=== PATIENT | male | born 2000 | race Caucasian/White ===

== ENCOUNTER 2019-10-29 20:10 | Emergency (ER) | payer OTHER, SELFPAY ==
--- NOTE | ~2019-10-29 | CT_ITS ---
EXAMINATION: CT brain wo con DATE: 10/29/2019 20:43 INDICATION: 2-3 days of worsening diffuse headache TECHNIQUE: Computed tomography (CT) of the head was performed without intravenous contrast. Sagittal and coronal reconstructions were performed. The mA was adjusted according to patient size. Iterative reconstruction technique was employed. The dose-length product was 605.33 mGy-cm. COMPARISON: head CT dated 03/02/2017 FINDINGS: No acute intracranial hemorrhage, acute infarction or abnormal extra axial fluid collection. Ventricl es are normal and symmetric. No mass/mass effect. Prominent mucosal thickening throughout the paranas al sinuses with complete opacification of the right sphenoid, all the visualized right ethmoid and vi sualized portion of the right maxillary sinus and complete opacification of the left sphenoid sinus. The orbits and mastoid air cells are normal. IMPRESSION: 1. Normal brain. 2. Extensive sinus disease. Reviewed, dictated and finalized at location A. IAL INSPECTOR
--- NOTE | 2019-10-29 20:14 | ED.HA ---
HPI - Headache General Chief Complaint: Headache Stated Complaint: headache Time Seen by Provider: 10/29/19 20:14 Source: patient Mode of arrival: ambulatory Limitations: no limitations History of Present Illness HPI Narrative: 19-year-old male presents with worsening headache today. He was seen last evening for the same and given IV medications. He was pain free when he left. Today he got his Imitrex and had onset of no other headache took an Imitrex and was relieved. He had a 2nd headache today taken Imitrex and was relieved had a 3rd headache today and the Imitrex did not help. He comes in today because of that headache. He complains of photophobia and phonophobia. Yesterday had blurry vision with this headache but today denies blurry vision. MD elicited complaint: migraine Onset (ago): day(s) (1) Onset description: gradually Location: left Severity: severe Quality & Timing: throbbing, dull, progressively worsening and similar to previous headaches Exacerbating factors: light and noise Relieving factors: prescription medication Context: occurred at rest Associated symptoms: nausea Treatments prior to arrival: migraine medication Related Data Allergies Allergy/AdvReac Type Severity Reaction Status Date / Time No Known Allergies Allergy Unverified 02/04/18 08:04 Review of Systems Review of Systems: All systems reviewed & are unremarkable except as noted in HPI and below PMFSH Past Medical History Medical History Adrenal insufficiency Diabetes mellitus type 1 Hypothyroidism Family History Family History Father Hypertension Family history of elevated blood lipids Family history of type 2 diabetes mellitus Mother Family history of hypothyroidism Family history of type 2 diabetes mellitus Other Asthma Cerebrovascular accident Diabetes mellitus Family history of Alzheimer's disease Family history of anemia Family history of arthritis Family history of atrial fibrillation Family history of cardiovascular disease Family history of chronic obstructive pulmonary disease Family history of congestive heart failure Family history of obesity Family history of thyroid disease Social History Social History Smoking status: Heavy tobacco smoker Alcohol intake: never Exam Const: General: healthy appearing, no acute distress and alert Nutritional Appearance: well nourished Orientation/consciousness: patient oriented x3 HENMT: Head: normal to inspection Ears: external ears normal and TM's normal bilaterally Face and sinus: sinus tenderness frontal (Left) and maxillary (Left) Mouth: Yes Normal oral and palatal mucosa present Eyes: Conjunctivae: conjunctivae normal Pupils: Equal, round and reactive pupils present EOM: EOMs intact bilaterally Direct Ophthalmoscopy: photophobia Neck: Neck: normal visual inspection Resp: Effort & Inspection: normal respiratory effort Auscultation: clear to auscultation bilaterally Cardio: Rate: regular rate Rhythm: regular rhythm GI: GI Palp: Yes Soft to palpation and No Tenderness to palpation present (GI) Back/Spine/Pelvis: Cervical Spine: cervical ROM normal Thoracic/Lumbar Spine: thoraco-lumbar ROM normal Neuro: General: patient oriented x3, moves all extremities, no meningeal signs and no focal motor deficits Speech: normal speech Gait exam (Neuro): Normal gait present Extrem: General: normal to inspection and no clubbing, cyanosis or edema Psych: Appearance: well kempt Mental Status: mental status grossly normal Affect: normal affect Attitude: cooperative Thought content: Yes Normal thought content present Discharge Plan Discharge Prescriptions: No Action sumatriptan succinate [Imitrex] 25 mg tablet See Rx Instructions .ROUTE .COMPLEX PRN (Reason: MIgraine ) Qty: 7 RF: 0
[2019-10-29 20:20] VITALS: BP 162/92; PULSE 101; RESP 14; TEMP 37.2; O2SAT 99
[2019-10-29] MEDS: ONDANSETRON INJ 4 MG/2 ML VIAL 8 MG IV PUSH (21:04)
[2019-10-29] MEDS: KETOROLAC 30 MG/ML VIAL (*BKC) IV PUSH (21:04)
[2019-10-29] MEDS: AMOXICILLIN/CLAVULANATE K 875-125 MG TAB 1 TABLET (21:09)
[2019-10-29 21:25] VITALS: BP 129/76
== END 2019-10-29 21:25 | disposition home or self-care (01) ==
PROVIDERS: Emergency Provider Emergency Medicine; PCP Family Medicine
DX: G43.909 Migraine, unspecified, not intractable, without status migrainosus (principal)
CPT/HCPCS: 70450; 96374; 96375; 99282; 99284; A9270; J1885; J2405

== ENCOUNTER 2020-10-07 13:58 | Emergency (ER) | payer OTHER, SELFPAY ==
[2020-10-07] VITALS (24 sets, daily range): BP systolic 105–124; BP diastolic 52–78; PULSE 91–132; RESP 11–29; TEMP 36.9; O2SAT 98–100
--- NOTE | ~2020-10-07 | XR_ITS ---
EXAMINATION: XR abdomen obstructive series DATE: 10/07/2020 16:53 INDICATION: Abdomen pain TECHNIQUE: Supine and upright views of the abdomen. FINDINGS: 02/10/2012 The visualized lung parenchyma is normal.. There is a nonobstructive bowel gas pattern. There is larg e amount of retained fecal material in the colon. Gas and stool are seen throughout the colon to the level of the rectum. There is no free air. IMPRESSION: 1. No acute abdominal abnormality. Fecal impaction of the colon. Reviewed, dictated and finalized at location A. MATIC CLIPPER
--- NOTE | ~2020-10-07 | XR_ITS ---
EXAMINATION: XR chest 1V portable 10/07/2020 14:45 INDICATION: Chest pain PROCEDURE: AP portable chest COMPARISON: 02/10/2012 FINDINGS: The lungs are clear. The cardiomediastinal silhouette is within normal limits. There are no pleural effusions. There is no pneumothorax suspected. IMPRESSION: 1: NO ACUTE CARDIOPULMONARY DISEASE. Reviewed, dictated and finalized at location A. STANT BASEBALL COACH
--- NOTE | 2020-10-07 14:08 | ECG_ITS ---
Measurements Intervals [place] Rate: 112 P: 78 MO: 128 QRS: 83 QRSD: 97 T: 75 QT: 333 QTc: 456 Interpretive Statements SINUS TACHYCARDIA ABNORMAL ECG Electronically Signed On 10-08-2020 14:20:11 AGRONOMY LOCATION MANAGER by Paco Schultz D.O.
[2020-10-07] MEDS: ONDANSETRON INJ 4 MG/2 ML VIAL IV PUSH (14:11)
[2020-10-07] MEDS: HYOSCY (14:17)
[2020-10-07] MEDS: ATROPINE (14:17)
[2020-10-07] MEDS: LIDOCAINE HCL 2% VISC SOLN 15 ML UDC (14:17)
[2020-10-07] MEDS: SCOP (14:17)
[2020-10-07] MEDS: MAG HYDROX/AL HYDROX/SIMETH 30 ML UDC (14:17)
[2020-10-07] MEDS: PHENOBARB (14:17)
[2020-10-07 14:30] LABS: Basophils Absolute Auto 0.07 K/mm3 (0.00-0.10); Eosinophils Absolute Auto 0.46 K/mm3 (0.02-0.50); Eosinophils Percent Auto 6.4 % (1.0-6.0); Immature Granulocyte Absolute 0.03 K/mm3 (0.00-0.00); Immature Granulocyte Percent A 0.4 % (0.0-0.0); Lymphocytes Absolute Auto 2.79 K/mm3 (1.10-4.50); Lymphocytes Percent Auto 38.8 % (18.0-42.0); Mean Corpuscular HGB Conc 32.6 g/dL (32.0-36.0); Mean Corpuscular Hemoglobin 25.5 pg (27.0-31.0); Mean Corpuscular Volume 78.2 fL (78.0-102.0); Mean Platelet Volume 11.6 fl (8.7-11.0); Monocytes Absolute Auto 0.46 K/mm3 (0.10-0.90); Monocytes Percent Auto 6.4 % (2.0-11.0); Neutrophils Absolute Auto 3.4 K/mm3 (1.7-7.2); Platelet Count Result 225 K/mm3 (150-420); Red Cell Distribution Width 12.9 % (11.6-14.4); White Blood Count 7.2 K/mm3 (4.8-10.8)
[2020-10-07 14:44] LABS: D Dimer 0.19 mg/L (0.19-0.50)
[2020-10-07 14:48] LABS: Alanine Aminotransferase 29 U/L (16-63); Albumin Level 4.4 g/dL (3.4-5.0); Alkaline Phosphatase 158 U/L (46-116); Anion Gap 23 mmol/L (8-16); Aspartate Amino Transferase 19 U/L (15-37); Blood Urea Nitrogen 24 mg/dL (7-18); Calcium 9.7 mg/dL (8.5-10.1); Carbon Dioxide 15 mmol/L (21-32); Chloride 93 mmol/L (98-108); Estimated Glomerular Filt Rate > 60; Potassium 4.3 mmol/L (3.5-5.1); Sodium 131 mmol/L (136-145); Total Protein 7.4 g/dL (6.4-8.2); Troponin I 20.8 ng/L (0.00-60.4)
[2020-10-07 14:49] LABS: Glucose 545 mg/dL (70-99); Osmolality Calculated 301 mOsm/kg (285-295)
[2020-10-07 15:02] LABS: Amylase 26 U/L (25-115); Lipase 65 U/L (73-393)
[2020-10-07 15:27] LABS: Add Urine Microscopic? YES; Appearance Urine Clear (Clear); Bilirubin Urine Negative (Negative); Blood Urine Negative (Negative); Color Urine Yellow (Yellow); Glucose Urine UA 2+ (Negative); Ketones Urine 3+ (Negative); Leukocyte Esterase Ur Negative (Negative); Nitrate Urine Negative (Negative); Protein Urine Negative (Negative); Urobilinogen Urine 0.2 mg/dL (0.2-1.0); pH Urine 5.5 (5.0-8.0)
[2020-10-07 15:32] LABS: Bacteria Urine None seen /hpf; RBC Urine 0-2 /hpf (0-2); Squamous Epithelial Cell Urine None seen /hpf (Few); WBC Urine 0-3 /hpf (0-3)
[2020-10-07 15:37] LABS: Amphetamine Screen Urine Negative (Negative); Barbiturate Screen Urine Negative (Negative); Benzodiazepines Screen Urine Negative (Negative); Cannabinoid Screen Urine Positive (Negative); Cocaine Screen Urine Negative (Negative); Methadone Screen Urine Negative (Negative); Opiate Screen Urine Negative (Negative); Phencyclidine Screen Urine Negative (Negative)
[2020-10-07] MEDS: METOCLOPRAMIDE HCL INJ 10 MG/2 ML VIAL IV PUSH (15:40)
[2020-10-07 15:43] LABS: SARS-CoV-2 Ag Negative (Negative)
[2020-10-07 15:53] LABS: Acetone Moderate (Negative)
[2020-10-07] MEDS: INSULIN HUMAN REGULAR (*BKC) 100 UNITS/ML 10 UNITS IV PUSH (15:57)
[2020-10-07 17:40] LABS: Glucose Point of Care 439 (65-105)
[2020-10-07 17:40] LABS: Glucose Point of Care 424 (65-105)
[2020-10-07 17:40] LABS: Glucose Point of Care 318 (65-105)
--- NOTE | 2020-10-10 03:06 | ED.CHESTPAIN ---
HPI - Chest Pain General Chief Complaint: Chest Pain Stated Complaint: vomitting Time Seen by Provider: 10/07/20 15:15 Source: patient Mode of arrival: ambulatory Limitations: no limitations History of Present Illness HPI narrative: Patient states he has had midsternal chest pain and epigastric pain that has been severe and ongoing for the past several hours. This is a sharp pain and has not been relieved by ibuprofen taken at home. This is not known to be related to any known injury or known cause. Onset: during rest Pain location: substernal and epigastric Pain radiation: none Severity: severe Quality: sharp Relieving factors: nothing Exacerbating factors: nothing Context: recent illness Associated symptoms: nausea Risk Factors Coronary artery disease risk factors: none Related Data Home Medications Medication Instructions Recorded Confirmed Basaglar KwikPen U-100 Insulin 30 unit SUBCUT HS 10/07/20 10/07/20 Allergies Allergy/AdvReac Type Severity Reaction Status Date / Time No Known Allergies Allergy Unverified 02/04/18 08:04 Review of Systems Constitutional: Constitutional: Reports no additional constitutional complaints Eyes: Eyes: Reports no additional eye complaints ENT: Reports system reviewed and no additional complaints, except as documented Cardiovascular: Cardiovascular: Reports no additional cardiovascular complaints Respiratory: Respiratory: Reports no additional respiratory complaints Gastrointestinal: Gastrointestinal: Reports no additional gastrointestinal complaints Genitourinary: Genitourinary: Reports no additional male genitourinary complaints Musculoskeletal: Musculoskeletal: Reports no additional musculoskeletal complaints Integumentary/Breasts: Skin/Breast: Reports system reviewed and no additional complaints, except as docu Neurologic: Reports system reviewed and no additional complaints, except as documented Psychiatric: Psychiatric: Reports no additional psychiatric complaints Endocrine: Endocrine: Reports no additional endocrine complaints Hematologic/Lymphatic: Hematologic/Lymphatic: Reports no additional hematologic/lymphatic complaints Allergic/Immunologic: Allergic/Immunologic: Reports no additional allergic/immunologic complaints [facility] Past Medical History Medical History Adrenal insufficiency (~2002) Depression Diabetes mellitus type 1 (~1998) Historically poorly controlled. Most recent hemoglobin A1c was 13.1%. Hypothyroidism Paroxysmal supraventricular tachycardia Surgical History Surgical History History of tonsillectomy Family History Family History Father Hypertension Family history of elevated blood lipids Family history of type 2 diabetes mellitus Mother Family history of hypothyroidism Family history of type 2 diabetes mellitus Other Asthma Cerebrovascular accident Diabetes mellitus Family history of Alzheimer's disease Family history of anemia Family history of arthritis Family history of atrial fibrillation Family history of cardiovascular disease Family history of chronic obstructive pulmonary disease Family history of congestive heart failure Family history of obesity Family history of thyroid disease Social History Social History Social History: Surrogate decision maker: Jose Martin Crane, father. Code status: Full code. Smoking packs per day: 0.5 Smoking cigarettes per day: 10.0 Years smoked: 4 Smoking pack-years: 2.00 Smoking status: Current every day smoker Tobacco type: cigarettes Alcohol intake: current Alcohol use details: Drinks seldom and in moderation Substance use: current Substance use type: marijuana Last use: 1 Additional living arrangements comments: Lives with his girlfr
== END 2020-10-07 19:05 | disposition short-term general hospital (02) ==
PROVIDERS: Emergency Provider Emergency Medicine
DX: E11.10 Type 2 diabetes mellitus with ketoacidosis without coma (principal); Z79.4 Long term (current) use of insulin; R07.9 Chest pain, unspecified
CPT/HCPCS: 36415; 71045; 74019; 80053; 80307; 81001; 82010; 82150; 83690; 84484; 85025; 85380; 87426; 93005; 96374; 96375; 99285; A9270; J1815; J2405; J2765

== ENCOUNTER 2020-10-07 20:09 | Inpatient (IN) | payer OTHER, SELFPAY ==
--- NOTE | 2020-10-07 19:45 | ADMGEN ---
This patient, Eugenio Crane, was admitted to Intensive Care Unit-7. Patient/family oriented to hospital policies and general routines including ID bracelet, bed and alarms, visiting hours, pain management, procedures, bathroom and other care routines, personal items, smoking policy, room service/diet, and visiting hours. Information on how to activate the Rapid Response Team has been discussed. Patient/Family are encouraged to report perceived risks to care and to ask questions if they do not understand what they are told or what they should do.
[2020-10-07 20:00] VITALS: BP 116/67; PULSE 109; PULSE 124; RESP 25; TEMP 36.8; O2SAT 98
[2020-10-07 20:02] VITALS: BMI 17.4
--- NOTE | 2020-10-07 20:20 | PM.IMHP ---
H&P: HPI History of Present Illness Date/Time: 10/07/20 20:30 <Jenae Tejeda PA-C - Last Filed: 10/07/20 21:40> Chief Complaint: Diabetic ketoacidosis. <Jenae Tejeda PA-C - Last Filed: 10/07/20 21:40> Narrative: Eugenio Crane is a 20-year-old male with type 1 diabetes mellitus, hypothyroidism, and adrenal insufficiency who is being directly admitted to the hospitalist service from the emergency department at [facility] [place] for [place] of diabetic ketoacidosis. Historically it sounds as though his diabetes is not well controlled with most recent hemoglobin A1c of 13.1%. He is haphazard about checking his glucose and in fact it sounds as though he was not checking them at all for several months due to a broken glucometer. More recently he has replace that glucometer and admits that his random glucose is typically in the mid 200s. In any event he felt normal when he went to bed last night. Upon waking in around 09:00 hours he had nausea and burning/sharp discomfort in the low sternal/epigastric region. He had several episodes of emesis thereafter, fell back asleep, and when he woke several hours later he was feeling short of breath with a racing heart. The nausea, vomiting, and epigastric discomfort also returned. He presented to the emergency department at [facility] [place] where he was diagnosed with diabetic ketoacidosis. At the time my evaluation he feels much better after simply receiving IV fluid rehydration and antiemetics. He denies fever, chills, sweats, cold and flu symptoms, sick contacts, hematemesis, diarrhea, melena, and dysuria. No exertional chest pain or shortness of breath. He has not had a cough. No pleuritic pain. <Jenae Tejeda PA-C - Last Filed: 10/07/20 21:40> Review of Systems Review of Systems: Narrative: Twelve systems were reviewed with pertinent positives and negatives as per HPI. Frequent constipation, typically has a bowel movement every 2 days or so. He suffers from GERD and it sounds like he gets pretty frequent indigestion however he does not take any medication for such. Except as documented, all other systems were reviewed and are negative. <Jenae Tjeeda PA-C - Last Filed: 10/07/20 21:40> [facility] Past Medical History Medical History: Medical History (Updated 10/07/20 @ 21:34 by Jenae Tejeda PA-C) Adrenal insufficiency (~2002) Depression Diabetes mellitus type 1 (~1998) Historically poorly controlled. Most recent hemoglobin A1c was 13.1%. Hypothyroidism Paroxysmal supraventricular tachycardia <Jenae Tejeda PA-C - Last Filed: 10/07/20 21:40> Surgical History Surgical History: Surgical History (Updated 10/07/20 @ 21:19 by Jenae Tejeda PA-C) History of tonsillectomy <Jenae Tejeda PA-C - Last Filed: 10/07/20 21:40> Family History Family History: Family History Father Hypertension Family history of elevated blood lipids Family history of type 2 diabetes mellitus Mother Family history of hypothyroidism Family history of type 2 diabetes mellitus Other Asthma Cerebrovascular accident Diabetes mellitus Family history of Alzheimer's disease Family history of anemia Family history of arthritis Family history of atrial fibrillation Family history of cardiovascular disease Family history of chronic obstructive pulmonary disease Family history of congestive heart failure Family history of obesity Family history of thyroid disease <Jenae Tejeda PA-C - Last Filed: 10/07/20 21:40> Social History Social History: Social History (Updated 10/07/20 @ 21:22 by Jenae Tejeda PA-C) Social History: Surrogate decision maker: Jose Martin Crane, father. Code status: Full code. Smoking packs per day: 0.5 Smoking cigarettes per day: 10.0 Years smoked: 4 Smoking pack-years: 2.00 Smoki
[2020-10-07 20:46] LABS: Anion Gap 21 mmol/L (8-16); Blood Urea Nitrogen 19 mg/dL (9-20); Calcium 9.7 mg/dL (8.4-10.2); Carbon Dioxide 14 mmol/L (22-30); Chloride 100 mmol/L (98-107); Estimated CRCL calculation 97 ml/min; Estimated Glomerular Filt Rate > 60; Glucose 342 mg/dL (75-110); Phosphorus 3.5 mg/dL (2.5-4.5); Potassium 4.6 mmol/L (3.4-5.0); Sodium 135 mmol/L (137-145)
[2020-10-07 20:48] LABS: Hemoglobin A1C 13.4 % (<5.7)
[2020-10-07] MEDS: INSULIN HUMAN REGULAR (*BKC) 100 UNITS in SODIUM CHLORIDE 0.9% IV 99 ML 5.5 UNITS IV CONT (21:03)
[2020-10-07] MEDS: SODIUM CHLORIDE 0.9% IV 1,000 ML 150 ML IV CONT (21:03)
[2020-10-07 21:11] LABS: Glucose Point of Care 333 (65-105)
[2020-10-07 21:58] LABS: Glucose Point of Care 352 (65-105)
[2020-10-07 22:00] VITALS: BP 107/58; PULSE 94; RESP 17; O2SAT 99
[2020-10-07 22:47] LABS: Glucose Point of Care 248 (65-105)
[2020-10-07 23:54] VITALS: BP 116/69; PULSE 94; RESP 18; TEMP 37.1; O2SAT 100
[2020-10-07 23:58] LABS: Glucose Point of Care 177 (65-105)
[2020-10-07] MEDS: KCL 20 MEQ/D5/0.45% SOD CHL 1,000 ML 150 ML IV CONT (23:59)
[2020-10-08] VITALS (9 sets, daily range): BP systolic 93–127; BP diastolic 42–94; PULSE 64–112; RESP 14–18; TEMP 35.8–36.6; O2SAT 98–100; BMI 16.1
[2020-10-08 01:03] LABS: Glucose Point of Care 125 (65-105)
[2020-10-08 01:14] LABS: Anion Gap 12 mmol/L (8-16); Blood Urea Nitrogen 17 mg/dL (9-20); Calcium 9.3 mg/dL (8.4-10.2); Carbon Dioxide 22 mmol/L (22-30); Chloride 103 mmol/L (98-107); Estimated CRCL calculation 108 ml/min; Estimated Glomerular Filt Rate > 60; Glucose 142 mg/dL (75-110); Potassium 3.8 mmol/L (3.4-5.0); Sodium 137 mmol/L (137-145)
[2020-10-08 01:52] LABS: Glucose Point of Care 130 (65-105)
[2020-10-08 03:06] LABS: Glucose Point of Care 125 (65-105)
[2020-10-08 04:16] LABS: Glucose Point of Care 105 (65-105)
[2020-10-08 05:12] LABS: Glucose Point of Care 98 (65-105)
[2020-10-08] MEDS: LEVOTHYROXINE SODIUM 12.5 MCG TABLET PO (05:13)
[2020-10-08] MEDS: LEVOTHYROXINE SODIUM 50 MCG TABLET PO (05:13)
[2020-10-08 05:42] LABS: Hematocrit 41.2 % (42.0-52.0); Mean Corpuscular Hemoglobin 25.8 pg (26-34); Mean Corpuscular Volume 75.9 fl (80-100); Mean Platelet Volume 10.8 fl (7.4-10.4); Platelet Count Result 231 k/mm3 (150-375); Red Blood Count 5.43 M/mm3 (4.6-6.20); Red Cell Distribution Width 13.2 % (11.5-14.5); White Blood Count 9.5 K/mm3 (4.5-10.0)
[2020-10-08 05:59] LABS: Anion Gap 8 mmol/L (8-16); Blood Urea Nitrogen 16 mg/dL (9-20); Calcium 8.9 mg/dL (8.4-10.2); Carbon Dioxide 24 mmol/L (22-30); Chloride 105 mmol/L (98-107); Estimated CRCL calculation 113 ml/min; Estimated Glomerular Filt Rate > 60; Glucose 96 mg/dL (75-110); Magnesium 1.7 mg/dL (1.6-2.3); Potassium 3.7 mmol/L (3.4-5.0); Sodium 137 mmol/L (137-145)
[2020-10-08 06:14] LABS: Glucose Point of Care 108 (65-105)
[2020-10-08] MEDS: ACETAMINOPHEN 325 MG TABLET 650 MG PO (06:17)
[2020-10-08] MEDS: KCL 20 MEQ/D5/0.45% SOD CHL 1,000 ML 150 ML IV CONT (06:18)
[2020-10-08 06:57] LABS: Thyroid Stimulating Hormone Reflex 0.834 uIU/mL (0.465-4.68)
[2020-10-08 08:05] LABS: Glucose Point of Care 71 (65-105)
[2020-10-08] MEDS: polyethylene glycoL 3350 17 GM POWD.PACK PO (08:27)
[2020-10-08] MEDS: HYDROCORTISONE 5 MG TABLET PO ×3 (08:28→18:00)
[2020-10-08] MEDS: FLUDROCORTISONE ACETATE 0.1 MG TABLET PO ×2 (08:29→18:00)
[2020-10-08] MEDS: FLUDROCORTISONE 1 EACH PO (08:30)
[2020-10-08] MEDS: FAMOTIDINE 20 MG/2 ML VIAL IV PUSH ×2 (08:31→21:53)
[2020-10-08] MEDS: SODIUM CHLORIDE 0.9% IV 1,000 ML 999 ML IV CONT (08:39)
[2020-10-08 08:48] LABS: Anion Gap 8 mmol/L (8-16); Blood Urea Nitrogen 17 mg/dL (9-20); Calcium 8.8 mg/dL (8.4-10.2); Carbon Dioxide 24 mmol/L (22-30); Chloride 104 mmol/L (98-107); Estimated CRCL calculation 113 ml/min; Estimated Glomerular Filt Rate > 60; Glucose 69 mg/dL (75-110); Potassium 3.8 mmol/L (3.4-5.0); Sodium 136 mmol/L (137-145)
[2020-10-08 09:11] LABS: Glucose Point of Care 55 (65-105)
[2020-10-08 09:40] LABS: Glucose Point of Care 115 (65-105)
[2020-10-08] MEDS: INSULIN GLARGINE (*BKC) 100 UNITS/ML 30 UNITS SUB-Q (09:41)
--- NOTE | 2020-10-08 11:57 | WPDCNINT ---
Assessment and Plan Assessment and plan (1) Diabetic ketoacidosis: Code(s): E11.10 - Type 2 diabetes mellitus with ketoacidosis without coma Status: Acute Assessment and Plan: Patient presented to the outside hospital with DKA, transferred to the ICU at [facility] for further management. Patient received IV fluids and started on insulin infusion per DKA protocol. Patient was given additional IV fluids this morning in the ICU -this morning anion gap is closed, patient was transition to long-acting insulin and sliding scale insulin. Started on diabetic diet. -hemoglobin A1c is 13.4 this admission -patient was counseled on taking his insulin regularly along with Accu-Cheks regularly (2) Adrenal insufficiency: Onset Date: ~2002 Code(s): E27.40 - Unspecified adrenocortical insufficiency Status: Acute Assessment and Plan: Continue hydrocortisone and fludrocortisone (3) Hypothyroidism: Code(s): E03.9 - Hypothyroidism, unspecified Status: Acute Assessment and Plan: Continue levothyroxine Additional Plan Discussed with patient updated with his condition and plan of care. I did reiterate the importance of using his insulin and checking his blood sugars as instructed by his manager bar and PCP. Patient acknowledges Code status: Full code Critical care time spent: 41 minutes Due to a high probability of clinically significant, life threatening deterioration, the patient required my highest level of preparedness to intervene emergently and I personally spent this critical care time directly and personally managing the patient. This critical care time included obtaining a history; examining the patient; pulse oximetry; ordering and review of studies; arranging urgent treatment with development of a management plan; evaluation of patient's response to treatment; frequent reassessment; and discussions with other providers. It was exclusive of separately billable procedures and treating other patients and teaching time. Please see Assessment and Plan section and the rest of the note for further information on patient assessment and treatment Board Handler Consult Note Consult date: 10/08/20 Time Seen: 07:11 Reason for consult: DKA, nausea, vomiting, epigastric abdominal pain HPI: Eugenio Crane is a 20 year old male with past medical history of adrenal insufficiency, depression, type 1 diabetes, hypothyroidism, paroxysmal supraventricular tachycardia presented the ED at [facility] and was transferred to the ICU at [facility] for diabetic ketoacidosis P patient has not been taking his insulin, not check his blood sugars on a regular basis. Presented with a 1 day history of nausea, vomiting, epigastric abdominal pain. Patient was given IV fluids, started on insulin infusion per DKA protocol transferred to the ICU for further management. No acute abdominal abnormality, fecal impaction of the colon. Chest x-ray showed no acute cardiopulmonary disease. Patient seen and examined the ICU, is awake, alert, oriented x3. Denies any nausea, vomiting, abdominal pain. States he feels so much better. Anion gap has closed, patient has been transition to long-acting insulin sliding scale insulin. Tolerating p.o. diet. Additional IV fluid bolus was given this morning. Review of Systems Review of Systems: All systems reviewed & are unremarkable except as noted in HPI and below PMFSH Past Medical History Medical History (Updated 10/07/20 @ 21:34 by Jenae Tejeda PA-C) Adrenal insufficiency (~2002) Depression Diabetes mellitus type 1 (~1998) Historically poorly controlled. Most recent hemoglobin A1c was 13.1%. Hypothyroidism Paroxysmal supraventricular tachycardia Surgical History Surgical History (Updated 10/07/20 @ 21:19 by Jenae Tejeda PA-C) History of tonsillectomy Family History Family History (Reviewed 10/07/20 @ 21:21 by Gustabo
--- NOTE | 2020-10-08 12:31 | PC.NURSE ---
This patient, Eugenio Crane, was [facility] to [facility] on 10/08/20 at 1147. Personal belongings sent with patient. Report given to [Galilea ]. Appropriate documentation sent with patient.
[2020-10-08 12:39] LABS: Anion Gap 12 mmol/L (8-16); Blood Urea Nitrogen 14 mg/dL (9-20); Calcium 8.8 mg/dL (8.4-10.2); Carbon Dioxide 20 mmol/L (22-30); Chloride 102 mmol/L (98-107); Estimated CRCL calculation 113 ml/min; Estimated Glomerular Filt Rate > 60; Glucose 285 mg/dL (75-110); Potassium 4.4 mmol/L (3.4-5.0); Sodium 134 mmol/L (137-145)
[2020-10-08 13:13] LABS: Glucose Point of Care 279 (65-105)
[2020-10-08] MEDS: INSULIN ASPART (*BKC) 100 UNITS/ML SUB-Q ×2 (13:18→17:59)
[2020-10-08 16:08] LABS: Anion Gap 6 mmol/L (8-16); Blood Urea Nitrogen 12 mg/dL (9-20); Calcium 8.5 mg/dL (8.4-10.2); Carbon Dioxide 26 mmol/L (22-30); Chloride 101 mmol/L (98-107); Estimated CRCL calculation 113 ml/min; Estimated Glomerular Filt Rate > 60; Glucose 281 mg/dL (75-110); Potassium 4.1 mmol/L (3.4-5.0); Sodium 133 mmol/L (137-145)
--- NOTE | 2020-10-08 16:08 | PM.IMPN ---
Progress Note: A&P Assessment and Plan (1) Diabetic ketoacidosis: Code(s): E11.10 - Type 2 diabetes mellitus with ketoacidosis without coma Status: Acute Assessment and Plan: 10/08/20 16:08 Patient is a 20-year-old male with history of type 1 diabetes he has history of uncontrolled diabetes with hemoglobin A1c of 13, history of adrenal insufficiency on cortef and florcortisone, patient had not been checking his blood sugar initially patient [facility] and he was in DKA patient was started on IV fluids and IV infusion and transferred to ICU at the [facility], patient IV fluids and IV infusion will continued and this morning patient blood sugar have trended down, his anion gap is closed, IV insulin infusion was stopped and patient was placed on long-acting insulin as well as sliding scale, currently stated feeling little better however is depressed recently he lost his mother and his grandmother, will continue to monitor patient blood sugar, staff educator consult the patient and further recommendation to follow. (2) Diabetes mellitus type 1: Onset Date: ~1998 Code(s): E10.9 - Type 1 diabetes mellitus without complications Status: Acute Assessment and Plan: Patient with history of uncontrolled diabetes will have a staff educator consult the patient (3) Epigastric pain: Code(s): R10.13 - Epigastric pain Status: Acute Assessment and Plan: Most likely secondary to DKA now resolved (4) Hypothyroidism: Code(s): E03.9 - Hypothyroidism, unspecified Status: Acute Assessment and Plan: Will continue home regimen (5) Adrenal insufficiency: Onset Date: ~2002 Code(s): E27.40 - Unspecified adrenocortical insufficiency Status: Acute Assessment and Plan: Clinically stable continue home regimen (6) Depression: Code(s): F32.9 - Major depressive disorder, single episode, unspecified Status: Inactive Assessment and Plan: Patient will benefit from psychiatry consultation Additional Plan The patient has been admitted to the hospitalist service with Dr. Nixon (critical care) consulting for treatment of diabetic ketoacidosis. Etiology of the DKA is not entirely clear but it sounds as though his diabetes has been historically poorly controlled. He will be started on an insulin drip which will be titrated per DKA protocol, monitoring for anion gap closure (23 on arrival to the ED). Will resume basal insulin and initiate sliding scale insulin upon resolution of DKA. I suspect his epigastric pain is likely related to DKA and probable GERD and/or gastritis, for which he will be started on Pepcid b.i.d. He will be NPO however I will allow him to have his glucocorticoids and mineralocorticoids given his history of adrenal insufficiency. Blood pressures and electrolytes are stable. Check TSH and hemoglobin A1c. Subjective Date/time seen: 10/08/20 16:08 Patient is a 20-year-old male with history of type 1 diabetes he has history of uncontrolled diabetes with hemoglobin A1c of 13, history of adrenal insufficiency on cortef and florcortisone, patient had not been checking his blood sugar initially patient presented [facility] and he was in DKA patient was started on IV fluids and IV infusion and transferred to ICU at the [facility], patient IV fluids and IV infusion will continued and this morning patient blood sugar have trended down, his anion gap is closed, IV insulin infusion was stopped and patient was placed on long-acting insulin as well as sliding scale, currently stated feeling little better however is depressed recently he lost his mother and his grandmother, will continue to monitor patient blood sugar, staff educator consult the patient and further recommendation to follow. Review of Systems Review of Systems: All systems
[2020-10-08 21:04] LABS: Glucose Point of Care 255 (65-105)
[2020-10-08 22:12] LABS: Glucose Point of Care 238 (65-105)
[2020-10-09 06:52] VITALS: BP 122/70; PULSE 55; RESP 16; TEMP 36.2; O2SAT 97
[2020-10-09] MEDS: LEVOTHYROXINE SODIUM 50 MCG TABLET PO (07:02)
[2020-10-09] MEDS: LEVOTHYROXINE SODIUM 12.5 MCG TABLET PO (07:02)
[2020-10-09 07:39] LABS: Glucose Point of Care 88 (65-105)
--- NOTE | 2020-10-09 09:09 | PC.NURSE ---
Left a message to pile driver operator barge mounted for patient.
[2020-10-09] MEDS: HYDROCORTISONE 5 MG TABLET PO ×2 (09:12→11:59)
[2020-10-09] MEDS: FLUDROCORTISONE ACETATE 0.1 MG TABLET PO (09:12)
[2020-10-09] MEDS: FAMOTIDINE 20 MG/2 ML VIAL IV PUSH (09:12)
[2020-10-09] MEDS: INSULIN GLARGINE (*BKC) 100 UNITS/ML 30 UNITS SUB-Q (09:14)
--- NOTE | 2020-10-09 10:55 | PC.NURSE ---
Extensive education given to patient regarding diabetes. Spoke with patient on proper blood sugar checks, diet, implications of not taking care of uncontrolled diabetes. Pt verbalized understanding, but states that he knows what to do, its just actually doing it.
[2020-10-09 11:16] LABS: Glucose Point of Care 261 (65-105)
[2020-10-09] MEDS: INSULIN ASPART (*BKC) 100 UNITS/ML SUB-Q (11:59)
--- NOTE | 2020-10-09 12:02 | PM.DS ---
DS: Admitting Diagnosis Admitting Diagnosis Admitting Diagnosis: Hyperglycemia DKA DS: Discharge Diagnosis Discharge Diagnosis (1) Diabetic ketoacidosis: Code(s): E11.10 - Type 2 diabetes mellitus with ketoacidosis without coma Status: Acute Assessment and Plan: 10/08/20 16:08 Patient is a 20-year-old male with history of type 1 diabetes he has history of uncontrolled diabetes with hemoglobin A1c of 13, history of adrenal insufficiency on cortef and florcortisone, patient had not been checking his blood sugar initially patient presented emergency department at [facility] and he was in DKA patient was started on IV fluids and IV infusion and transferred to ICU at the [facility], patient IV fluids and IV infusion will continued and this morning patient blood sugar have trended down, his anion gap is closed, IV insulin infusion was stopped and patient was placed on long-acting insulin as well as sliding scale, currently stated feeling little better however is depressed recently he lost his mother and his grandmother, will continue to monitor patient blood sugar, business department chair consult the patient and further recommendation to follow. DS: Summary Hospital Course Reason for hospitalization: Chief Complaint: Diabetic ketoacidosis. <Jenae Tejeda PA-C - Last Filed: 10/07/20 21:40> Narrative: Eugenio Crane is a 20-year-old male with type 1 diabetes mellitus, hypothyroidism, and adrenal insufficiency who is being directly admitted to the hospitalist service from the emergency department at [facility] [place] for treatment of diabetic ketoacidosis. Historically it sounds as though his diabetes is not well controlled with most recent hemoglobin A1c of 13.1%. He is haphazard about checking his glucose and in fact it sounds as though he was not checking them at all for several months due to a broken glucometer. More recently he has replace that glucometer and admits that his random glucose is typically in the mid 200s. In any event he felt normal when he went to bed last night. Upon waking in around 09:00 hours he had nausea and burning/sharp discomfort in the low sternal/epigastric region. He had several episodes of emesis thereafter, fell back asleep, and when he woke several hours later he was feeling short of breath with a racing heart. The nausea, vomiting, and epigastric discomfort also returned. He presented to the emergency department at [facility] [place] where he was diagnosed with diabetic ketoacidosis. At the time my evaluation he feels much better after simply receiving IV fluid rehydration and antiemetics. He denies fever, chills, sweats, cold and flu symptoms, sick contacts, hematemesis, diarrhea, melena, and dysuria. No exertional chest pain or shortness of breath. He has not had a cough. No pleuritic pain. <Jenae Tejeda PA-C - Last Filed: 10/07/20 21:40> Hospital Course: Patient is a 20-year-old male with history of type 1 diabetes he has history of uncontrolled diabetes with hemoglobin A1c of 13, history of adrenal insufficiency on cortef and florcortisone, patient had not been checking his blood sugar initially patient presented emergency department at [facility] and he was in DKA patient was started on IV fluids and IV infusion and transferred to ICU at the [facility], patient IV fluids and IV infusion will continued and this morning patient blood sugar have trended down, his anion gap is closed, IV insulin infusion was stopped and patient was placed on long-acting insulin as well as sliding scale, currently stated feeling little better however is depressed recently he lost his mother and his grandmother, will continue to monitor patient blood sugar, business department chair consult the patient and further recommendation to follow. Today patient is much more comfortable blood sugars a close to his baseline his clinically stable will d
--- NOTE | 2020-10-09 13:44 | PC.NURSE ---
Diabetic workbook, log book, and extensive written materials given to patient at discharge. Once again explained at length the importance of checking blood sugars, counting carbs, the repercussions of leaving diabetes unattended. Pt verbalized understanding.
== END 2020-10-09 13:40 | disposition home or self-care (01) | DRG 420 ==
LOC: ANHICU 22:47 → ANH3MED 10-09 11:40 → ANHICU 10-15 09:18
PROVIDERS: Physician Assistant; Admitting Provider Family Medicine; PCP Family Medicine; Visit Provider Family Medicine
DX: E10.10 Type 1 diabetes mellitus with ketoacidosis without coma (principal); E03.9 Hypothyroidism, unspecified; E27.40 Unspecified adrenocortical insufficiency; F32.9 Major depressive disorder, single episode, unspecified; I47.1 Supraventricular tachycardia; F17.210 Nicotine dependence, cigarettes, uncomplicated; R10.13 Epigastric pain; K21.9 Gastro-esophageal reflux disease without esophagitis
CPT/HCPCS: 36415; 80048; 83036; 83735; 84100; 84443; 85027; A9270; J1815; J3480; J7030

== ENCOUNTER 2021-04-15 15:25 | Emergency (ER) | payer OTHER, SELFPAY ==
[2021-04-15 15:30] VITALS: BP 125/73; PULSE 88; RESP 20; TEMP 36.8; O2SAT 99
--- NOTE | 2021-04-15 15:42 | ED.GENADULT ---
HPI - General Adult General Chief complaint: Recheck/Abnormal Lab/Rx Stated complaint: med issue/weak Source: patient Mode of arrival: ambulatory Limitations: no limitations History of Present Illness HPI narrative: Patient here today for medication refill, patient with a history of Kolby's disease doing well has been out of his medication for the last couple of days currently now not having any problems with some chest pain shortness of breath no fever or chills is vitals are stable including blood pressure there was no dysuria no flank pain no nausea or vomiting. Patient needs renewal of his fludrocortisone and hydrocortisone. Onset (ago): day(s) Related Data Allergies Allergy/AdvReac Type Severity Reaction Status Date / Time No Known Allergies Allergy Unverified 02/04/18 08:04 Review of Systems Review of Systems: All systems reviewed & are unremarkable except as noted in HPI and below PMFSH Past Medical History Medical History Adrenal insufficiency (~2002) Depression Diabetes mellitus type 1 (~1998) Historically poorly controlled. Most recent hemoglobin A1c was 13.1%. Hypothyroidism Paroxysmal supraventricular tachycardia Surgical History Surgical History History of tonsillectomy Family History Family History Father Hypertension Family history of elevated blood lipids Family history of type 2 diabetes mellitus Mother Family history of hypothyroidism Family history of type 2 diabetes mellitus Other Asthma Cerebrovascular accident Diabetes mellitus Family history of Alzheimer's disease Family history of anemia Family history of arthritis Family history of atrial fibrillation Family history of cardiovascular disease Family history of chronic obstructive pulmonary disease Family history of congestive heart failure Family history of obesity Family history of thyroid disease Social History Social History Social History: Surrogate decision maker: Jose Martin Crane, father. Code status: Full code. Smoking packs per day: 0.5 Smoking cigarettes per day: 10.0 Years smoked: 4 Smoking pack-years: 2.00 Smoking status: Current every day smoker Tobacco type: cigarettes Alcohol intake: current Substance use: current Substance use type: marijuana Last use: 1 Additional living arrangements comments: Lives with his girlfriend in [place]. Additional occupation/education comments: Works at [employer]. Spiritual care concerns: No Exam Const: General: no acute distress and alert Orientation/consciousness: patient oriented x3 HENMT: Head: normal to inspection Eyes: Conjunctivae: conjunctivae normal Pupils: Equal, round and reactive pupils present EOM: EOMs intact bilaterally Direct Ophthalmoscopy: no photophobia Neck: Neck: normal visual inspection, no lymphadenopathy and no meningeal signs Chest: Chest palpation & inspection: normal inspection of the chest Resp: Effort & Inspection: normal respiratory effort Auscultation: clear to auscultation bilaterally Cardio: Rate: regular rate Rhythm: regular rhythm GI: GI Palp: Yes Soft to palpation Percussion: Yes normal to percussion : Testes: Testes normal Back/Spine/Pelvis: Back: no CVA tenderness Skin: General skin exam: normal color Rashes: no rashes Neuro: General: patient oriented x3 Extrem: General: normal to inspection and no pedal edema Psych: Appearance: grossly normal and well kempt Mental Status: mental status grossly normal Affect: normal affect Attitude: cooperative Thought content: Yes Normal thought content present Course Course Emergency Course: Patient doing well and 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 Critical Care Time Critical
[2021-04-15 15:48] VITALS: BP 122/71; PULSE 82; RESP 20; O2SAT 99
== END 2021-04-15 15:55 | disposition home or self-care (01) ==
PROVIDERS: Emergency Provider Emergency Medicine; PCP Family Medicine
DX: E27.1 Primary adrenocortical insufficiency (principal); Z76.0 Encounter for issue of repeat prescription
CPT/HCPCS: 99281; 99282

== ENCOUNTER 2021-05-01 10:47 | Outpatient (CLI) | payer OTHER, SELFPAY ==
[2021-05-01 16:35] LABS: Anion Gap 8 mmol/L (8-16); Blood Urea Nitrogen 20 mg/dL (9-20); Calcium 9.8 mg/dL (8.4-10.2); Carbon Dioxide 26 mmol/L (22-30); Chloride 103 mmol/L (98-107); Cholesterol 158 mg/dL (0-200); Estimated Glomerular Filt Rate > 60; Glucose 247 mg/dL (65-110); HDL Direct 51 mg/dL; Potassium 4.2 mmol/L (3.4-5.0); Sodium 137 mmol/L (137-145); Triglycerides 64 mg/dL (<150)
[2021-05-01 16:45] LABS: LDL Cholesterol Direct 88 mg/dL
[2021-05-01 17:12] LABS: Hemoglobin A1C 11.8 % (<5.7)
[2021-05-01 17:12] LABS: MALB Creatinine Ratio 16.8 mg/g (0-30); Microalbumin Urine Random 14.3 mg/L (0-16.7)
[2021-05-01 18:33] LABS: Free T4 Free Thyroxine 1.51 ng/mL (0.78-2.19)
== END 2021-05-01 10:48 | disposition home or self-care (01) ==
LOC: ANHWCLAB 10:51
PROVIDERS: PCP Family Medicine; Visit Provider Internal Medicine Endocrinology, Diabetes & Metabolism
DX: E10.65 Type 1 diabetes mellitus with hyperglycemia (principal); E03.9 Hypothyroidism, unspecified; E27.40 Unspecified adrenocortical insufficiency
CPT/HCPCS: 36415; 80048; 80061; 82043; 83036; 84439; 84443

== ENCOUNTER 2021-05-04 14:07 | Emergency (ER) | payer OTHER, SELFPAY ==
[2021-05-04 16:00] VITALS: BP 114/86; PULSE 92; RESP 20; TEMP 36.8; O2SAT 100
--- NOTE | 2021-05-04 16:15 | ED.NEUROSD ---
HPI - Neuro Symptoms/Deficit General Stated Complaint: Migraine Time Seen by Provider: 05/04/21 15:07 Source: patient and RN notes reviewed Mode of arrival: ambulatory Limitations: no limitations History of Present Illness HPI Narrative: migrainous MARCUS Onset (ago): day(s) (1) History of same: Yes Severity: mild Quality: other (Pt has no acute lateralizing sxs.) Relieving factors: medication Context: gradual onset On Anticoagulants: No Associated symptoms: nausea/vomiting Treatments Prior to Arrival: other medication Related Data Allergies Allergy/AdvReac Type Severity Reaction Status Date / Time No Known Allergies Allergy Unverified 02/04/18 08:04 Review of Systems Review of Systems: All systems reviewed & are unremarkable except as noted in HPI and below Constitutional: Constitutional: Reports as per HPI and Reports no additional constitutional complaints Eyes: Eyes: Reports as per HPI and Reports no additional eye complaints ENT: Reports system reviewed and no additional complaints, except as documented and Reports as per HPI Cardiovascular: Cardiovascular: Reports as per HPI and Reports no additional cardiovascular complaints Respiratory: Respiratory: Reports as per HPI and Reports no additional respiratory complaints Gastrointestinal: Gastrointestinal: Reports as per HPI and Reports no additional gastrointestinal complaints Genitourinary: Genitourinary: Reports no additional male genitourinary complaints and Reports as per HPI Musculoskeletal: Musculoskeletal: Reports no additional musculoskeletal complaints and Reports as per HPI Integumentary/Breasts: Skin/Breast: Reports system reviewed and no additional complaints, except as docu and Reports as per HPI Neurologic: Reports system reviewed and no additional complaints, except as documented and Reports as per HPI Psychiatric: Psychiatric: Reports no additional psychiatric complaints and Reports as per HPI Endocrine: Endocrine: Reports no additional endocrine complaints Hematologic/Lymphatic: Hematologic/Lymphatic: Reports no additional hematologic/lymphatic complaints and Reports as per HPI Allergic/Immunologic: Allergic/Immunologic: Reports no additional allergic/immunologic complaints and Reports as per HPI PMF Past Medical History Medical History (Updated 05/04/21 @ 16:28 by Radha Horn MD) Adrenal insufficiency (~2002) Depression Diabetes mellitus type 1 (~1998) Historically poorly controlled. Most recent hemoglobin A1c was 13.1%. Hypothyroidism Migraine Paroxysmal supraventricular tachycardia Surgical History Surgical History History of tonsillectomy Family History Family History Father Hypertension Family history of elevated blood lipids Family history of type 2 diabetes mellitus Mother Family history of hypothyroidism Family history of type 2 diabetes mellitus Other Asthma Cerebrovascular accident Diabetes mellitus Family history of Alzheimer's disease Family history of anemia Family history of arthritis Family history of atrial fibrillation Family history of cardiovascular disease Family history of chronic obstructive pulmonary disease Family history of congestive heart failure Family history of obesity Family history of thyroid disease Social History Social History Social History: Surrogate decision maker: Jose Martin Crane, father. Code status: Full code. Smoking packs per day: 0.5 Smoking cigarettes per day: 10.0 Years smoked: 4 Smoking pack-years: 2.00 Smoking status: Current every day smoker Tobacco type: cigarettes Alcohol intake: current Alcohol use details: Drinks seldom and in moderation Substance use: current Substance use type: marijuana Last use: 1 Additional living arrangements comments: [place]
[2021-05-04] MEDS: KETOROLAC (*BKC) 60 MG/2 ML VIAL IM (16:28)
[2021-05-04] MEDS: ONDANSETRON HCL ODT 4 MG TABLET PO (16:28)
[2021-05-04 18:06] VITALS: BP 112/76; PULSE 86; RESP 20; TEMP 36.6; O2SAT 100
== END 2021-05-04 18:08 | disposition home or self-care (01) ==
PROVIDERS: Emergency Provider Emergency Medicine; PCP Family Medicine
DX: R51.9 Headache, unspecified (principal)
CPT/HCPCS: 96372; 99283; A9270; J1885

== ENCOUNTER 2021-05-29 16:34 | Outpatient (CLI) | payer OTHER, SELFPAY ==
[2021-05-29 18:45] LABS: SARS-CoV-2 RNA PCR Negative (Negative)
== END 2021-05-29 16:35 | disposition home or self-care (01) ==
LOC: CHSLAB 16:36
PROVIDERS: PCP Family Medicine; Visit Provider Family Medicine
DX: J02.9 Acute pharyngitis, unspecified (principal); Z20.822 Contact with and (suspected) exposure to COVID-19
CPT/HCPCS: 87081; 87880; C9803; U0003; U0005

== ENCOUNTER 2021-08-31 14:21 | Outpatient (CLI) | payer OTHER, SELFPAY ==
--- NOTE | ~2021-08-31 | XR_ITS ---
EXAMINATION: XR knee LT 3V DATE: 08/31/2021 14:58 INDICATION: Left knee pain. Injury. TECHNIQUE: 3 views of left knee on 4 radiographs were obtained. COMPARISON: Left knee radiographs 07/27/2016 FINDINGS: Bone alignment is normal. No fracture. Joint spaces are well maintained. There is no knee j oint effusion. IMPRESSION: 1. Normal left knee. Reviewed, dictated and finalized at location A. ECT ACCOUNTANT IMPRESSION: 1. Normal left knee.
== END 2021-08-31 14:22 | disposition home or self-care (01) ==
PROVIDERS: PCP Family Medicine; Visit Provider Family Medicine
DX: M25.562 Pain in left knee (principal)
CPT/HCPCS: 73562

== ENCOUNTER 2021-10-26 15:29 | Outpatient (CLI) | payer OTHER, SELFPAY ==
[2021-10-26 15:47] LABS: Basophils Absolute Auto 0.07 K/mm3 (0.00-0.10); Basophils Percent Auto 0.9 % (0.0-1.0); Eosinophils Absolute Auto 0.48 K/mm3 (0.02-0.50); Eosinophils Percent Auto 6.1 % (1.0-6.0); Hematocrit 49.1 % (40.0-54.0); Hemoglobin 16.6 g/dL (14.0-18.0); Immature Granulocyte Absolute 0.02 K/mm3 (0.00-0.00); Immature Granulocyte Percent A 0.3 % (0.0-0.0); Lymphocytes Absolute Auto 3.75 K/mm3 (1.10-4.50); Mean Corpuscular HGB Conc 33.8 g/dL (32.0-36.0); Mean Corpuscular Hemoglobin 25.9 pg (27.0-31.0); Mean Corpuscular Volume 76.6 fL (78.0-102.0); Mean Platelet Volume 10.8 fl (8.7-11.0); Monocytes Absolute Auto 0.45 K/mm3 (0.10-0.90); Monocytes Percent Auto 5.8 % (2.0-11.0); Neutrophils Percent Auto 38.9 % (50.0-70.0); Platelet Count Result 244 K/mm3 (150-420); Red Blood Count 6.41 M/mm3 (4.70-6.10); Red Cell Distribution Width 12.6 % (11.6-14.4); White Blood Count 7.8 K/mm3 (4.8-10.8)
[2021-10-26 15:57] LABS: Add Urine Microscopic? YES; Appearance Urine Clear (Clear); Bilirubin Urine Negative (Negative); Blood Urine Negative (Negative); Color Urine Light Yellow (Yellow); Glucose Urine UA 3+ (Negative); Ketones Urine 2+ (Negative); Leukocyte Esterase Ur Negative (Negative); Nitrate Urine Negative (Negative); Protein Urine Negative (Negative); Specific Grav Ur 1.015 (1.010-1.020); Urobilinogen Urine 0.2 mg/dL (0.2-1.0)
[2021-10-26 16:03] LABS: Bacteria Urine None seen /hpf; RBC Urine 0-2 /hpf (0-2); Squamous Epithelial Cell Urine Rare /hpf (Few); WBC Urine 0-3 /hpf (0-3)
[2021-10-26 16:24] LABS: Alanine Aminotransferase 40 U/L (16-63); Albumin Level 4.5 g/dL (3.4-5.0); Alkaline Phosphatase 127 U/L (46-116); Amylase 25 U/L (25-115); Anion Gap 13 mmol/L (8-16); Aspartate Amino Transferase 18 U/L (15-37); Blood Urea Nitrogen 16 mg/dL (7-18); Carbon Dioxide 28 mmol/L (21-32); Chloride 95 mmol/L (98-108); Estimated Glomerular Filt Rate > 60; Glucose 389 mg/dL (70-99); Lipase 38 U/L (73-393); Osmolality Calculated 299 mOsm/kg (285-295); Potassium 4.3 mmol/L (3.5-5.1); Sodium 136 mmol/L (136-145); Total Protein 7.3 g/dL (6.4-8.2)
== END 2021-10-26 15:30 | disposition home or self-care (01) ==
LOC: CHSLAB 15:31
PROVIDERS: PCP Family Medicine; Visit Provider Family Medicine
DX: E10.9 Type 1 diabetes mellitus without complications (principal)
CPT/HCPCS: 36415; 80053; 81001; 82150; 83690; 85025

== ENCOUNTER 2021-11-09 14:10 | Outpatient (CLI) | payer OTHER, SELFPAY ==
[2021-11-09 15:00] LABS: Influenza Control Valid (Valid)
[2021-11-09 15:04] LABS: SARS-CoV-2 Ag Positive (Negative)
== END 2021-11-09 14:11 | disposition home or self-care (01) ==
LOC: CHSLAB 14:13
PROVIDERS: PCP Family Medicine; Visit Provider Family Medicine
DX: U07.1 COVID-19 (principal); R50.9 Fever, unspecified
CPT/HCPCS: 87426; 87804; C9803

== ENCOUNTER 2021-11-21 07:39 | Inpatient (IN) | payer OTHER, SELFPAY ==
[2021-11-21] VITALS (7 sets, daily range): BP systolic 93–129; BP diastolic 49–77; PULSE 76–110; RESP 15–18; TEMP 36.1–37.3; O2SAT 96–100; BMI 18.7
--- NOTE | ~2021-11-21 | XR_ITS ---
EXAMINATION: XR chest 1V portable EXAM DATE: 11/21/2021 08:47 INDICATION: Dyspnea and severe headache. TECHNIQUE: Portable AP frontal chest x-ray was obtained. There is no prior study for comparison. FINDINGS: The lungs are clear. There are no pleural effusions. The cardiomediastinal silhouette is within normal limits. There is no pneumothorax suspected. The bones and soft tissues are unremarkab le. IMPRESSION: No acute cardiopulmonary findings. Reviewed, dictated and finalized at location B. ET REPORT CLERK
[2021-11-21 07:52] LABS: Glucose Point of Care 272 mg/dl (65-105)
--- NOTE | 2021-11-21 07:53 | ED.SOB ---
HPI - SOB/Dyspnea General Chief Complaint: Nausea/Vomiting/Diarrhea Stated Complaint: DKA Time Seen by Provider: 11/21/21 07:53 Source: patient Mode of arrival: ambulatory Limitations: no limitations History of Present Illness HPI Narrative: 21-year-old man with a history of type 1 diabetes, adrenal insufficiency, and SVT comes in the ER complaining of a headache that started 3 days ago and vomiting at the onset of the headache and again this morning. Patient states that he felt febrile, lightheaded, and short of breath. He was diagnosed with COVID 3 weeks ago. He has not been taking his stress dose of hydrocortisone nor has he been able to eat anything or drink anything today. MD elicited complaint: shortness of breath Pertinent past history: diabetes Onset (ago): day(s) (3) Context: recent illness and elevated blood glucose Timing: constant and progressively worsening Severity: severe Exacerbating factors: exertion Relieving factors: nothing Known history of: diabetes Associated symptoms: fever, nausea/vomiting and lightheadedness Treatment prior to arrival: none Related Data Home oxygen amount: none Home Medications Medication Instructions Recorded Confirmed fludrocortisone See Rx Instructions .ROUTE .COMPLEX 11/21/21 11/21/21 sumatriptan succinate 100 mg PO PRN PRN 11/21/21 11/21/21 Allergies Allergy/AdvReac Type Severity Reaction Status Date / Time No Known Allergies Allergy Verified 11/21/21 07:53 Review of Systems Constitutional: Constitutional: Denies chills, Reports fatigue, Reports fever(s) and Denies weakness ENT: Denies nasal congestion and Denies sore throat Cardiovascular: Cardiovascular: Denies chest pain and Denies radiating jaw, neck or arm pain Respiratory: Respiratory: Denies cough, Reports dyspnea and Denies wheezing Gastrointestinal: Gastrointestinal: Denies abdominal pain, Denies diarrhea, Reports nausea and Reports vomiting Genitourinary: Genitourinary: Denies dysuria and Denies urinary frequency Integumentary/Breasts: Skin/Breast: Denies pruritus, Denies erythema and Denies rash Neurologic: Denies vertigo, Reports dizziness and Denies syncope [facility] Past Medical History Medical History Adrenal insufficiency (~2002) Depression Diabetes mellitus type 1 (~1998) Historically poorly controlled. Most recent hemoglobin A1c was 13.1%. Hypothyroidism Migraine Paroxysmal supraventricular tachycardia Surgical History Surgical History History of tonsillectomy Family History Family History Father Hypertension Family history of elevated blood lipids Family history of type 2 diabetes mellitus Mother Family history of hypothyroidism Family history of type 2 diabetes mellitus Other Asthma Cerebrovascular accident Diabetes mellitus Family history of Alzheimer's disease Family history of anemia Family history of arthritis Family history of atrial fibrillation Family history of cardiovascular disease Family history of chronic obstructive pulmonary disease Family history of congestive heart failure Family history of obesity Family history of thyroid disease Social History Social History Social History: Surrogate decision maker: Jose Martin Crane, father. Code status: Full code. Smoking packs per day: 0.5 Smoking cigarettes per day: 10.0 Years smoked: 4 Smoking pack-years: 2.00 Tobacco type: cigarettes Alcohol intake: current Alcohol use details: Drinks seldom and in moderation Substance use: current Substance use type: marijuana Last use: 1 Additional living arrangements comments: Lives with his girlfriend in [place]. Additional occupation/education comments: Works at [employer]. Gender identity (if verbalized
[2021-11-21] MEDS: SODIUM CHLORIDE 0.9% IV 1,000 ML 999 ML IV CONT (08:21)
[2021-11-21] MEDS: ONDANSETRON INJ 4 MG/2 ML VIAL IV PUSH (08:21)
[2021-11-21] MEDS: DEXAMETHASONE SOD PHOS INJ 4 MG/ML VIAL IV PUSH (08:21)
--- NOTE | 2021-11-21 08:21 | ECG_ITS ---
Measurements Intervals [place] Rate: 87 P: 72 [place]: 145 QRS: 79 QRSD: 96 T: 65 QT: 376 QTc: 454 Interpretive Statements SINUS RHYTHM NORMAL ECG Electronically Signed On 11-21-2021 8:37:58 PHOTOVOLTAIC TECHNICIAN by Paco Schultz D.O.
[2021-11-21 08:35] LABS: Basophils Absolute Auto 0.04 K/mm3 (0.00-0.10); Basophils Percent Auto 0.4 % (0.0-1.0); Eosinophils Absolute Auto 0.29 K/mm3 (0.02-0.50); Eosinophils Percent Auto 2.9 % (1.0-6.0); Hematocrit 41.8 % (40.0-54.0); Hemoglobin 13.9 g/dL (14.0-18.0); Immature Granulocyte Absolute 0.03 K/mm3 (0.00-0.00); Immature Granulocyte Percent A 0.3 % (0.0-0.0); Lymphocytes Absolute Auto 2.16 K/mm3 (1.10-4.50); Lymphocytes Percent Auto 21.4 % (18.0-42.0); Mean Corpuscular HGB Conc 33.3 g/dL (32.0-36.0); Mean Corpuscular Hemoglobin 25.8 pg (27.0-31.0); Mean Corpuscular Volume 77.7 fL (78.0-102.0); Mean Platelet Volume 11.6 fl (8.7-11.0); Monocytes Absolute Auto 0.76 K/mm3 (0.10-0.90); Monocytes Percent Auto 7.5 % (2.0-11.0); Neutrophils Absolute Auto 6.8 K/mm3 (1.7-7.2); Neutrophils Percent Auto 67.5 % (50.0-70.0); Platelet Count Result 181 K/mm3 (150-420); Red Blood Count 5.38 M/mm3 (4.70-6.10); Red Cell Distribution Width 12.7 % (11.6-14.4); White Blood Count 10.1 K/mm3 (4.8-10.8)
[2021-11-21 08:38] LABS: Base Excess ABG -7.1 mmol/L (0-2); Device ROOM AIR; HCO3 ABG 16.9 mmol/L (23-29); Modified Allen's Test Pass; Oxygen Content ABG 18.7 %vol (16.0-22.0); Oxygen Saturation ABG 96.2 % (95-97); Oxyhemoglobin 95.2 % (94-100); PCO2 ABG 29.9 mmHg (35-45); PO2 ABG 87.5 mmHg (80-90); Site Drawn RIGHT RADIAL; Total Hemoglobin 13.9 g/dL (12.0-18.0); pH ABG 7.37 (7.35-7.45)
[2021-11-21 08:43] LABS: Add Urine Microscopic? YES; Appearance Urine Clear (Clear); Bilirubin Urine Negative (Negative); Blood Urine Negative (Negative); Color Urine Light Yellow (Yellow); Glucose Urine UA 2+ (Negative); Ketones Urine 3+ (Negative); Leukocyte Esterase Ur Negative LEU/UL (Negative); Nitrate Urine Negative (Negative); Protein Urine Negative (Negative); Specific Grav Ur >= 1.030 (1.010-1.020); Urobilinogen Urine 0.2 mg/dL (0.2-1.0)
[2021-11-21 08:49] LABS: RBC Urine None seen /hpf (0-2); WBC Urine None seen /hpf (0-3)
[2021-11-21 08:50] LABS: Bacteria Urine None seen /hpf
[2021-11-21 08:51] LABS: Alanine Aminotransferase 24 U/L (16-63); Albumin Level 3.7 g/dL (3.4-5.0); Alkaline Phosphatase 119 U/L (46-116); Anion Gap 18 mmol/L (8-16); Aspartate Amino Transferase 11 U/L (15-37); Bilirubin,Total 1.5 mg/dL (0.00-1.00); Blood Urea Nitrogen 18 mg/dL (7-18); Calcium 9.1 mg/dL (8.5-10.1); Carbon Dioxide 23 mmol/L (21-32); Chloride 96 mmol/L (98-108); Estimated CRCL calculation 92 ml/min; Estimated Glomerular Filt Rate > 60; Glucose 300 mg/dL (70-99); Osmolality Calculated 296 mOsm/kg (285-295); Potassium 3.7 mmol/L (3.5-5.1); Sodium 137 mmol/L (136-145); Total Protein 6.8 g/dL (6.4-8.2)
[2021-11-21 08:53] LABS: Magnesium 1.5 mg/dL (1.8-2.4)
[2021-11-21 08:55] LABS: Influenza Control Valid (Valid)
[2021-11-21] MEDS: HYDROmorphone HCL INJ (*CRX) 2 MG/ML VIAL 0.5 MG IV PUSH (09:27)
[2021-11-21] MEDS: METOCLOPRAMIDE HCL INJ 10 MG/2 ML VIAL IV PUSH (09:27)
[2021-11-21] MEDS: KCL 20 MEQ/SW 100 ML 100 ML 50 MEQ IVPB (09:28)
[2021-11-21] MEDS: SODIUM CHLORIDE 0.9% IV 500 ML 250 ML IV CONT (09:28)
[2021-11-21] MEDS: KETOROLAC 15 MG/ML VIAL (*BKC) IV PUSH (09:33)
--- NOTE | 2021-11-21 11:15 | ADMGEN ---
This patient, Eugenio Crane, was admitted to 2nd Floor Room 202-2. Patient/family oriented to hospital policies and general routines including ID bracelet, bed and alarms, visiting hours, pain management, procedures, bathroom and other care routines, personal items, smoking policy, room service/diet, and visiting hours. Information on how to activate the Rapid Response Team has been discussed. Patient/Family are encouraged to report perceived risks to care and to ask questions if they do not understand what they are told or what they should do.
--- NOTE | 2021-11-21 11:20 | PC.NURSE ---
Pt signifigant other is needing a note for work. Pt was seen here in the ED on 11/21/21. Deanna (pts visitor) brought pt in and was unable to go to work.
--- NOTE | 2021-11-21 11:23 | PC.NURSE ---
Pts IV potassium finished infusion while transporting to floor. IV NS 200mL still infusing.
[2021-11-21 11:26] LABS: Glucose Point of Care 249 mg/dl (65-105)
[2021-11-21] MEDS: MAGNESIUM SULF 2 GM/WATER 50ML 2 GM/50 ML BAG IVPB (11:56)
[2021-11-21] MEDS: ACETAMINOPHEN 325 MG TABLET 650 MG PO (12:08)
[2021-11-21] MEDS: SODIUM CHLORIDE 0.9% IV 1,000 ML 100 ML IV CONT ×2 (12:09→21:43)
[2021-11-21 17:04] LABS: Glucose Point of Care 284 mg/dl (65-105)
[2021-11-21 21:03] LABS: Glucose Point of Care 432 mg/dl (65-105)
--- NOTE | 2021-11-21 21:40 | PC.NURSE ---
Helena Montoya MEDICARE COORDINATOR notified of patient's blood sugar of 432 with new orders received.
[2021-11-21 23:59] LABS: Glucose Point of Care 285 mg/dl (65-105)
[2021-11-22] VITALS: BP 122/66; PULSE 95; RESP 14; TEMP 36.9; O2SAT 99
--- NOTE | 2021-11-22 00:40 | PC.NURSE ---
Notified Leticia Montoya NP, regarding pt's insulin. New orders received and noted for lantus 30 units at HS
[2021-11-22 03:08] VITALS: PULSE 104
[2021-11-22 04:00] VITALS: BP 121/76; PULSE 114; RESP 17; TEMP 37.3; O2SAT 100
[2021-11-22 04:12] LABS: Glucose Point of Care 347 mg/dl (65-105)
--- NOTE | 2021-11-22 04:20 | PC.NURSE ---
1x order for lantus 30 units received from HIRAM Martino. Order received and noted.
[2021-11-22] MEDS: ONDANSETRON INJ 4 MG/2 ML VIAL IV PUSH (04:41)
[2021-11-22] MEDS: INSULIN GLARGINE (*BKC) 100 UNITS/ML 30 UNITS SUB-Q (04:46)
[2021-11-22 05:36] LABS: Oxygen Saturation ABG 97.3 % (95-97); Oxyhemoglobin 96.7 % (94-100); PCO2 ABG 25.9 mmHg (35-45); PO2 ABG 110.9 mmHg (80-90); Total Hemoglobin 13.9 g/dL (12.0-18.0); pH ABG 7.28 (7.35-7.45)
[2021-11-22 05:38] LABS: Device ROOM AIR; Modified Allen's Test Pass; Site Drawn RIGHT RADIAL
[2021-11-22 05:39] LABS: Basophils Absolute Auto 0.04 K/mm3 (0.00-0.10); Basophils Percent Auto 0.2 % (0.0-1.0); Eosinophils Absolute Auto 0.03 K/mm3 (0.02-0.50); Eosinophils Percent Auto 0.2 % (1.0-6.0); Hematocrit 40.3 % (40.0-54.0); Hemoglobin 13.3 g/dL (14.0-18.0); Immature Granulocyte Percent A 0.6 % (0.0-0.0); Lymphocytes Absolute Auto 1.48 K/mm3 (1.10-4.50); Lymphocytes Percent Auto 8.6 % (18.0-42.0); Mean Corpuscular Hemoglobin 25.4 pg (27.0-31.0); Mean Corpuscular Volume 76.9 fL (78.0-102.0); Mean Platelet Volume 11.2 fl (8.7-11.0); Monocytes Absolute Auto 1.16 K/mm3 (0.10-0.90); Monocytes Percent Auto 6.7 % (2.0-11.0); Neutrophils Absolute Auto 14.4 K/mm3 (1.7-7.2); Neutrophils Percent Auto 83.7 % (50.0-70.0); Platelet Count Result 295 K/mm3 (150-420); Red Blood Count 5.24 M/mm3 (4.70-6.10); Red Cell Distribution Width 12.8 % (11.6-14.4); White Blood Count 17.2 K/mm3 (4.8-10.8)
[2021-11-22 05:50] LABS: Anion Gap 24 mmol/L (8-16); Blood Urea Nitrogen 23 mg/dL (7-18); Calcium 9.4 mg/dL (8.5-10.1); Carbon Dioxide 13 mmol/L (21-32); Chloride 95 mmol/L (98-108); Estimated CRCL calculation 85 ml/min; Estimated Glomerular Filt Rate > 60; Osmolality Calculated 295 mOsm/kg (285-295); Potassium 4.8 mmol/L (3.5-5.1); Sodium 132 mmol/L (136-145)
[2021-11-22 05:57] LABS: Glucose 415 mg/dL (70-99)
--- NOTE | 2021-11-22 06:16 | PC.NURSE ---
Leticia Montoya NP, notified of pt's critical glucose of 415; New orders received and noted.
[2021-11-22 07:31] LABS: Acetone Small (Negative)
[2021-11-22 07:47] LABS: Glucose Point of Care 335 mg/dl (65-105)
[2021-11-22 08:00] VITALS: BP 125/61; PULSE 118; PULSE 88; RESP 20; TEMP 36.9; O2SAT 98
[2021-11-22 08:03] LABS: Hemoglobin A1C 9.7 % (<5.7)
[2021-11-22 08:12] LABS: Magnesium 2.1 mg/dL (1.8-2.4); Phosphorus 4.4 mg/dL (2.6-4.7)
[2021-11-22] MEDS: INSULIN HUMAN REGULAR (*BKC) 100 UNITS in SODIUM CHLORIDE 0.9% IV 99 ML IV CONT (08:40)
--- NOTE | 2021-11-22 08:40 | PC.NURSE ---
bedside glucose noted to be 313, insulin drip started at 5 units an hour
[2021-11-22 08:42] LABS: Glucose Point of Care 313 mg/dl (65-105)
--- NOTE | 2021-11-22 09:30 | PC.NURSE ---
bedside glucose 295 at this time, awaiting orders for insulin drip adjustment
[2021-11-22 09:34] LABS: Glucose Point of Care 295 mg/dl (65-105)
[2021-11-22 10:00] LABS: Anion Gap 21 mmol/L (8-16); Blood Urea Nitrogen 22 mg/dL (7-18); Calcium 9.3 mg/dL (8.5-10.1); Carbon Dioxide 15 mmol/L (21-32); Chloride 97 mmol/L (98-108); Estimated CRCL calculation 83 ml/min; Estimated Glomerular Filt Rate > 60; Glucose 313 mg/dL (70-99); Osmolality Calculated 291 mOsm/kg (285-295); Potassium 4.3 mmol/L (3.5-5.1); Sodium 133 mmol/L (136-145)
--- NOTE | 2021-11-22 10:38 | PC.NURSE ---
bedside glucose 216, hospitalist notified, awaiting order to adjust insulin drip
[2021-11-22 10:43] LABS: Glucose Point of Care 216 mg/dl (65-105)
--- NOTE | 2021-11-22 11:08 | WPDPN ---
Progress Note: A&P Assessment and Plan (1) Diabetic ketoacidosis: Qualifiers: Diabetes mellitus complication detail: without coma Diabetes mellitus type: type 1 Qualified Code(s): E10.10 - Type 1 diabetes mellitus with ketoacidosis without coma Code(s): E11.10 - Type 2 diabetes mellitus with ketoacidosis without coma Status: Acute Assessment and Plan: Anion gap 24, pH 7.28, bicarb 12, blood sugar greater than 300, UA with ketones, acetone small DKA protocol implemented. Will closely monitor (2) Diabetes mellitus type 1: Onset Date: ~1998 Code(s): E10.9 - Type 1 diabetes mellitus without complications Status: Acute Assessment and Plan: A1c 9.7 Blood sugar 300>415>313, repeat in the a.m. Patient started on insulin drip protocol Resume diabetic diet when appropriate Continue Lantus 30 units daily and moderate dose sliding scale when insulin drip has been DC'd Hourly Accu-Cheks for now will resume AC/HS when appropriate When appropriate will start sliding scale with hypoglycemic protocol and insulin (3) Migraine: Qualifiers: Intractability: not intractable Migraine type: other Status migrainosus presence: without status migrainosus Qualified Code(s): G43.809 - Other migraine, not intractable, without status migrainosus Code(s): G43.909 - Migraine, unspecified, not intractable, without status migrainosus Status: Acute Assessment and Plan: Continue Tylenol (4) Adrenal insufficiency: Onset Date: ~2002 Code(s): E27.40 - Unspecified adrenocortical insufficiency Status: Acute Assessment and Plan: Patient takes fludrocortisone and hydrocortisone on hold for now due to elevated blood sugars Resume when appropriate (5) Hypothyroidism: Qualifiers: Hypothyroidism type: acquired Qualified Code(s): E03.9 - Hypothyroidism, unspecified Code(s): E03.9 - Hypothyroidism, unspecified Status: Acute Assessment and Plan: Continue Synthroid 125 MCG's daily (6) Epigastric pain: Code(s): R10.13 - Epigastric pain Status: Acute Assessment and Plan: Resolved Patient with a history of diabetic Gastroparesi Started Reglan (7) Elevated WBCs: Code(s): D72.829 - Elevated white blood cell count, unspecified Status: Acute Assessment and Plan: WBCs10.1>17.2, patient received dexamethasone 4 mg once in ED. this does not explain an excessive increase in WBCs 11/22/2021 temperature of 99.1 UA and blood culture culture pending Patient started on Rocephin 2 mg twice daily Subjective Date/time seen: 11/22/21 11:08 patient anxious to discharge home and concerned about being exposed to Covid due to hospitalization and not being able to pay his rent. Patient informed that Covid patients are from Covid negative patients. Patient has been started on insulin anion gap 24, pH 7.28, bicarb 12, and blood sugar greater than 400, UA Positive for ketones and acetone level small on admission. Patient laboratory test is worsening patient has been placed on DKA protocol. Review of Systems Review of Systems: A 14 organ system Review of Systems was performed and pertinent positives included in the HPI, otherwise remaining ROS is negative. Exam Narrative: GENERAL: Anxious in no apparent distress. HEAD: normocephalic, atraumatic. EYES: PERRL. Sclera clear/white. Vision is grossly intact. EARS: External ears normal, auditory canals clear and without drainage, TMs normal without perforation. Hearing grossly intact. NOSE: External nose normal with no obvious nasal discharge, nares without redness, no rhinorrhea. THROAT: Mucous membranes moist, posterior pharynx clear. NECK: Neck supple, non-tender without lymphadenopathy, masses or thyromegaly. CARDIOVASCULAR: Regular rate and rhythm without murmurs, gallops, or rubs. RESPIRATORY: Clear to auscultation. Breath sounds
[2021-11-22] MEDS: PANTOPRAZOLE SODIUM IV 40 MG VIAL IV PUSH (11:25)
[2021-11-22] MEDS: METOCLOPRAMIDE HCL INJ 10 MG/2 ML VIAL 5 MG IV PUSH (11:25)
[2021-11-22 11:41] LABS: Glucose Point of Care 217 mg/dl (65-105)
[2021-11-22 12:00] VITALS: BP 136/72; PULSE 75; PULSE 88; RESP 18; TEMP 35.8; O2SAT 97
[2021-11-22 12:35] LABS: Glucose Point of Care 174 mg/dl (65-105)
--- NOTE | 2021-11-22 12:38 | PC.NURSE ---
bedside glucose 174, hospitalist notified and insulin drip decrease to 3.42ml an hour
[2021-11-22 12:45] LABS: Add Urine Microscopic? YES; Appearance Urine Clear (Clear); Bilirubin Urine Negative (Negative); Blood Urine Negative (Negative); Color Urine Light Yellow (Yellow); Glucose Urine UA 3+ (Negative); Ketones Urine 3+ (Negative); Leukocyte Esterase Ur Negative (Negative); Nitrate Urine Negative (Negative); Protein Urine Negative (Negative); Specific Grav Ur 1.025 (1.010-1.020); Urobilinogen Urine 0.2 mg/dL (0.2-1.0); pH Urine 5.5 (5.0-8.0)
[2021-11-22 12:52] LABS: RBC Urine None seen /hpf (0-2); WBC Urine None seen /hpf (0-3)
[2021-11-22 12:53] LABS: Bacteria Urine None seen /hpf
[2021-11-22 13:43] LABS: Glucose Point of Care 147 mg/dl (65-105)
--- NOTE | 2021-11-22 13:50 | PC.NURSE ---
Per engineering laboratory technician, pt is refusing any sticks at this time.
[2021-11-22] MEDS: SODIUM CHLORIDE 0.9% IV 1,000 ML 100 ML IV CONT (14:00)
[2021-11-22 14:11] LABS: Anion Gap 13 mmol/L (8-16); Blood Urea Nitrogen 19 mg/dL (7-18); Calcium 9.4 mg/dL (8.5-10.1); Carbon Dioxide 23 mmol/L (21-32); Chloride 101 mmol/L (98-108); Estimated CRCL calculation 88 ml/min; Estimated Glomerular Filt Rate > 60; Glucose 155 mg/dL (70-99); Osmolality Calculated 289 mOsm/kg (285-295); Potassium 4.2 mmol/L (3.5-5.1); Sodium 137 mmol/L (136-145)
[2021-11-22 14:21] LABS: Lactic Acid Reflex 0.9 mmol/L (0.4-2.0)
[2021-11-22 14:40] LABS: Glucose Point of Care 115 mg/dl (65-105)
[2021-11-22 15:30] LABS: Glucose Point of Care 76 mg/dl (65-105)
[2021-11-22 16:38] LABS: Glucose Point of Care 63 mg/dl (65-105)
--- NOTE | 2021-11-22 16:45 | PC.NURSE ---
Pt expressed desire to leave AMA to HIRAM Cardenas. IV was removed, reviewed AMA form including risks of leaving against medical advice. Pt verbalized understanding but stated he had to get home because his girlfriend is having panic attacks. Pt was given an apple juice while dressing because he felt shaky . He was again encouraged to stay, but refused.
--- NOTE | 2021-11-22 16:51 | PM.DS ---
DS: Admitting Diagnosis Discharge Date 11/22/2021 Admitting Diagnosis DKA patient left AGAINST MEDICAL ADVICE DS: Discharge Diagnosis Discharge Diagnosis (1) Diabetic ketoacidosis: Qualifiers: Diabetes mellitus complication detail: without coma Diabetes mellitus type: type 1 Qualified Code(s): E10.10 - Type 1 diabetes mellitus with ketoacidosis without coma Code(s): E11.10 - Type 2 diabetes mellitus with ketoacidosis without coma Status: Acute Assessment and Plan: Anion gap 24, pH 7.28, bicarb 12, blood sugar greater than 300, UA with ketones, acetone small DKA protocol implemented. Will closely monitor (2) Diabetes mellitus type 1: Onset Date: ~1998 Code(s): E10.9 - Type 1 diabetes mellitus without complications Status: Acute Assessment and Plan: A1c 9.7 Blood sugar 300>415>313, repeat in the a.m. Patient started on insulin drip protocol Resume diabetic diet when appropriate Continue Lantus 30 units daily and moderate dose sliding scale when insulin drip has been DC'd Hourly Accu-Cheks for now will resume AC/HS when appropriate When appropriate will start sliding scale with hypoglycemic protocol and insulin (3) Migraine: Qualifiers: Intractability: not intractable Migraine type: other Status migrainosus presence: without status migrainosus Qualified Code(s): G43.809 - Other migraine, not intractable, without status migrainosus Code(s): G43.909 - Migraine, unspecified, not intractable, without status migrainosus Status: Acute Assessment and Plan: Continue Tylenol (4) Adrenal insufficiency: Onset Date: ~2002 Code(s): E27.40 - Unspecified adrenocortical insufficiency Status: Acute Assessment and Plan: Patient takes fludrocortisone and hydrocortisone on hold for now due to elevated blood sugars Resume when appropriate (5) Hypothyroidism: Qualifiers: Hypothyroidism type: acquired Qualified Code(s): E03.9 - Hypothyroidism, unspecified Code(s): E03.9 - Hypothyroidism, unspecified Status: Acute Assessment and Plan: Continue Synthroid 125 MCG's daily (6) Epigastric pain: Code(s): R10.13 - Epigastric pain Status: Acute Assessment and Plan: Resolved Patient with a history of diabetic Gastroparesi Started Reglan (7) Elevated WBCs: Code(s): D72.829 - Elevated white blood cell count, unspecified Status: Acute Assessment and Plan: WBCs10.1>17.2, patient received dexamethasone 4 mg once in ED. this does not explain an excessive increase in WBCs 11/22/2021 temperature of 99.1 UA and blood culture culture pending Patient started on Rocephin 2 mg twice daily DS: Summary Hospital Course Reason for hospitalization: Elevated blood sugar Hospital Course: 21-year-old man with a history of type 1 diabetes, adrenal insufficiency, and SVT comes in the ER complaining of a headache that started 3 days ago and vomiting at the onset of the headache and again this morning. Patient states that he felt febrile, lightheaded, and short of breath. He was diagnosed with COVID 3 weeks ago. He has not been taking his stress dose of hydrocortisone nor has he been able to eat anything or drink anything today. This day patient was treated for DKA refer to problem.patient blood sugars in the 69 at time of AMA. Patient advised to follow-up with his primary care physician, he will also discharged with antibiotics due to elevated white count. Time Spent with Patient Time attestation: Total time spent providing and/or coordinating discharge services: Exam Narrative: GENERAL: Anxious in no apparent distress. HEAD: normocephalic, atraumatic. EYES: PERRL. Sclera clear/white. Vision is grossly intact. EARS: External ears normal, auditory canals clear and without drainage, TMs normal without perforation. Hearing grossly intact. NOSE: External nose normal with
--- NOTE | 2021-11-24 14:16 | PC.NURSE ---
Pt states he received and understood his instructions. Pt has no other comments.
== END 2021-11-22 16:45 | disposition left against medical advice (07) | DRG 420 ==
LOC: CHSED 09:50 → CHS2ND 10:26
PROVIDERS: Nurse Practitioner; Nurse Practitioner Family; Admitting Provider Emergency Medicine; Emergency Provider Emergency Medicine; PCP Family Medicine; Visit Provider Emergency Medicine
DX: E10.10 Type 1 diabetes mellitus with ketoacidosis without coma (principal); E10.43 Type 1 diabetes mellitus with diabetic autonomic (poly)neuropathy; K31.84 Gastroparesis; D72.829 Elevated white blood cell count, unspecified; G43.909 Migraine, unspecified, not intractable, without status migrainosus; E27.40 Unspecified adrenocortical insufficiency; E03.9 Hypothyroidism, unspecified
CPT/HCPCS: 36415; 36600; 71045; 80048; 80053; 81001; 82010; 82805; 82948; 83036; 83605; 83735; 84100; 85025; 87040; 87804; 93005; 96361; 96365; 96366; 96368; 96374; 96375; 99285; A9270; C9113; G0378; G0379; J1100; J1170; J1815; J1885; J2405; J2765; J3475; J3480; J7030; J7040

== ENCOUNTER 2021-11-23 14:09 | Emergency (ER) | payer OTHER, SELFPAY ==
[2021-11-23 14:15] VITALS: BP 118/72; PULSE 129; RESP 16; TEMP 35.9; O2SAT 100
[2021-11-23 14:28] LABS: Glucose Point of Care 151 mg/dl (65-105)
[2021-11-23 14:33] LABS: Basophils Percent Auto 0.3 % (0.2-1.2); Eosinophils Absolute Auto 0.2 K/mm3 (0-0.3); Eosinophils Percent Auto 2.4 % (0-4.4); Hematocrit 40.2 % (42.0-52.0); Hemoglobin 13.4 g/dL (14.0-18.0); Immature Granulocyte Absolute 0.03 K/mm3 (0.00-0.031); Immature Granulocyte Percent A 0.4 % (0-0.5); Lymphocytes Absolute Auto 2.41 K/mm3 (0.9-3.2); Lymphocytes Percent Auto 31.8 % (18.3-44.2); Mean Corpuscular HGB Conc 33.3 g/dl (32-36); Mean Corpuscular Hemoglobin 25.8 pg (26-34); Mean Corpuscular Volume 77.3 fl (80-100); Mean Platelet Volume 10.3 fl (7.4-10.4); Monocytes Absolute Auto 0.6 K/mm3 (0.1-0.6); Neutrophils Absolute Auto 4.3 K/mm3 (1.3-6.7); Neutrophils Percent Auto 57.1 % (45.5-73.1); Platelet Count Result 233 k/mm3 (150-375); White Blood Count 7.6 K/mm3 (4.5-10.0)
[2021-11-23 14:45] LABS: Alanine Aminotransferase 19 U/L (4-50); Albumin Level 4.1 g/dL (3.5-5.1); Alkaline Phosphatase 100 U/L (38-126); Anion Gap 6 mmol/L (8-16); Aspartate Amino Transferase 30 U/L (17-59); Bilirubin,Total 0.5 mg/dL (0.2-1.3); Blood Urea Nitrogen 14 mg/dL (9-20); Calcium 9.1 mg/dL (8.4-10.2); Carbon Dioxide 29 mmol/L (22-30); Chloride 104 mmol/L (98-107); Estimated CRCL calculation 137 ml/min; Estimated Glomerular Filt Rate > 60; Glucose 163 mg/dL (65-110); Magnesium 1.6 mg/dL (1.6-2.3); Phosphorus 2.5 mg/dL (2.5-4.5); Potassium 3.7 mmol/L (3.4-5.0); Sodium 139 mmol/L (137-145)
[2021-11-23 14:49] LABS: Add Urine Microscopic? YES; Appearance Urine Clear (Clear); Bilirubin Urine Negative (Negative); Blood Urine Negative (Negative); Color Urine Yellow (Yellow); Glucose Urine UA 1+ mg/dL (Negative); Ketones Urine Negative (Negative); Leukocyte Esterase Ur Negative LEU/UL (Negative); Mucus Urine Rare /lpf; Nitrate Urine Negative (Negative); Protein Urine Negative (Negative); RBC Urine 0-2 /hpf (0-2); Specific Grav Ur 1.015 (1.001-1.035); Urobilinogen Urine Negative mg/dL (<2.0); WBC Urine 0-3 /hpf
[2021-11-23 14:50] LABS: Beta-Hydroxybutyrate/Acetoacetate 0.08 mmol/L (0.02-0.27)
[2021-11-23] MEDS: SODIUM CHLORIDE 0.9% IV 1,000 ML 999 ML IV CONT (14:57)
--- NOTE | 2021-11-23 15:03 | ED.GENADULT ---
HPI - General Adult General Chief complaint: Recheck/Abnormal Lab/Rx Stated complaint: fever, poss DKA Time Seen by Provider: 11/23/21 14:38 History of Present Illness HPI narrative: Patient is 21 years old white male presented to the ED with no symptoms except feeling worried about the possibility of blood infection. Patient denies any fever, chills, nausea, vomiting, abdominal pain, coughing, shortness of breath, chest pain, back pain or urinary symptoms. Patient went see his family physician 2 days ago who told him to go to the emergency room for possible blood infection, patient went to [facility] 2 days ago and signed himself out yesterday. Today patient is stressed and concerned about the possibility of blood infection. History of adrenal insufficiency, insulin-dependent diabetes, hypothyroidism, migraine headache and Covid infection 3 weeks ago. Patient girlfriend at the bedside stating that cortisone was stopped 3 days ago for 24 hours because of the DKA. Later I was able to get the discharge summary from [facility] on November 22, 2021 Admitting diagnosis: DKA Discharge diagnosis: DKA, left AMA, migraine headache Related Data Home Medications Medication Instructions Recorded Confirmed fludrocortisone See Rx Instructions .ROUTE .COMPLEX 11/21/21 11/21/21 sumatriptan succinate 100 mg PO PRN PRN 11/21/21 11/21/21 Allergies Allergy/AdvReac Type Severity Reaction Status Date / Time No Known Allergies Allergy Verified 11/23/21 14:28 Review of Systems Review of Systems: CONSTITUTIONAL: Denies fever, chills, or sweats. EYES: Denies visual changes, redness, or discharge. ENT: Denies rhinorrhea, congestion, sore throat, or otalgia. CARDIOVASCULAR: Denies chest pain, palpitations, or edema. RESPIRATORY: Denies cough or dyspnea. GASTROINTESTINAL: Denies abdominal pain, nausea, vomiting, or diarrhea. GENITOURINARY: Denies dysuria or hematuria. SKIN: Denies rash or itching. MUSCULOSKELETAL: Denies back pain, joint pain, or myalgia. NEUROLOGIC: Denies headache, numbness, or weakness. PSYCHIATRIC: Denies anxiety or depression. [facility] Past Medical History Medical History Adrenal insufficiency (~2002) Depression Diabetes mellitus type 1 (~1998) Historically poorly controlled. Most recent hemoglobin A1c was 13.1%. Hypothyroidism Migraine Paroxysmal supraventricular tachycardia Surgical History Surgical History History of tonsillectomy Family History Family History Father Hypertension Family history of elevated blood lipids Family history of type 2 diabetes mellitus Mother Family history of hypothyroidism Family history of type 2 diabetes mellitus Other Asthma Cerebrovascular accident Diabetes mellitus Family history of Alzheimer's disease Family history of anemia Family history of arthritis Family history of atrial fibrillation Family history of cardiovascular disease Family history of chronic obstructive pulmonary disease Family history of congestive heart failure Family history of obesity Family history of thyroid disease Social History Social History Social History: Surrogate decision maker: Jose Martin Crane, father. Code status: Full code. Smoking packs per day: 0.5 Smoking cigarettes per day: 10.0 Years smoked: 4 Smoking pack-years: 2.00 Smoking status: Light tobacco smoker Tobacco type: cigarettes Alcohol intake: current Alcohol use details: Drinks seldom and in moderation Substance use: current Substance use type: marijuana Last use: 1 Additional living arrangements comments: Lives with his girlfriend in [place]. Additional occupation/education comments: Works at [employer]. Gender identity (if verbalized by the patient): Male Sexual
[2021-11-23 15:26] LABS: Fractional Inspired Oxygen 21 %; HCO3 VBG 24.1 mEq/l (24.0-30.0); PCO2 VBG 43.8 mmHg (42.0-48.0); pH VBG 7.359 (7.300-7.400)
[2021-11-23 15:28] LABS: Device ROOM AIR; PO2 VBG 22.5 mmHg (35.0-45.0)
[2021-11-23 16:17] VITALS: BP 118/73; PULSE 99; RESP 18; O2SAT 100
== END 2021-11-23 16:22 | disposition home or self-care (01) ==
PROVIDERS: Emergency Medicine; Emergency Provider Emergency Medicine; PCP Family Medicine
DX: J01.00 Acute maxillary sinusitis, unspecified (principal); F41.9 Anxiety disorder, unspecified; F17.210 Nicotine dependence, cigarettes, uncomplicated; E11.9 Type 2 diabetes mellitus without complications; E03.9 Hypothyroidism, unspecified
CPT/HCPCS: 36415; 80053; 81001; 82010; 82803; 82948; 83735; 84100; 85025; 96360; 99283; J7030

== ENCOUNTER 2022-03-14 16:39 | Outpatient (CLI) | payer OTHER, SELFPAY ==
--- NOTE | ~2022-03-14 | XR_ITS ---
XR lumbar spine 2-3V 03/14/2022 17:11 Indication: Back pain Procedure: 3 views lumbar spine Comparison: 08/27/2016 Findings: Vertebral body and disc heights are preserved. No fracture, subluxation or dislocation. Ped icles intact. No spondylolysis or spondylolisthesis. Sacral foramen are symmetric. Normal lumbar lord osis. Impression: 1: No significant abnormality of the lumbar spine. Reviewed, dictated and finalized at location A. Impression: 1: No significant abnormality of the lumbar spine.
--- NOTE | ~2022-03-14 | XR_ITS ---
XR foot RT min 3V 03/14/2022 17:11 Indication: Right fourth toe numbness Procedure: 4 views right foot Comparison: No prior studies for comparison. Findings: There is anatomic alignment. No fracture, subluxation or dislocation. No focal soft tissue abnormality. No foreign bodies. Lisfranc joint intact. Impression: 1: No acute bone or joint abnormality. Reviewed, dictated and finalized at location A. Impression: 1: No acute bone or joint abnormality.
[2022-03-14 17:07] LABS: Basophils Absolute Auto 0.06 K/mm3 (0.00-0.10); Basophils Percent Auto 0.9 % (0.0-1.0); Eosinophils Absolute Auto 0.53 K/mm3 (0.02-0.50); Eosinophils Percent Auto 8.1 % (1.0-6.0); Hematocrit 46.1 % (40.0-54.0); Hemoglobin 14.9 g/dL (14.0-18.0); Immature Granulocyte Absolute 0.01 K/mm3 (0.00-0.00); Immature Granulocyte Percent A 0.2 % (0.0-0.0); Lymphocytes Percent Auto 41.1 % (18.0-42.0); Mean Corpuscular HGB Conc 32.3 g/dL (32.0-36.0); Mean Corpuscular Hemoglobin 25.3 pg (27.0-31.0); Mean Corpuscular Volume 78.1 fL (78.0-102.0); Mean Platelet Volume 11.1 fl (8.7-11.0); Monocytes Percent Auto 6.1 % (2.0-11.0); Neutrophils Absolute Auto 2.9 K/mm3 (1.7-7.2); Neutrophils Percent Auto 43.6 % (50.0-70.0); Platelet Count Result 208 K/mm3 (150-420); Red Cell Distribution Width 13.1 % (11.6-14.4); White Blood Count 6.6 K/mm3 (4.8-10.8)
[2022-03-14 17:26] LABS: Add Urine Microscopic? YES; Appearance Urine Clear (Clear); Bilirubin Urine Negative (Negative); Blood Urine Negative (Negative); Color Urine Light Yellow (Yellow); Glucose Urine UA 3+ (Negative); Ketones Urine 1+ (Negative); Leukocyte Esterase Ur Negative (Negative); Nitrate Urine Negative (Negative); Protein Urine Negative (Negative); Specific Grav Ur 1.025 (1.010-1.020); Urobilinogen Urine 0.2 mg/dL (0.2-1.0)
[2022-03-14 17:29] LABS: Alanine Aminotransferase 35 U/L (16-63); Alkaline Phosphatase 100 U/L (46-116); Amylase 30 U/L (25-115); Anion Gap 3 mmol/L (8-16); Aspartate Amino Transferase 22 U/L (15-37); Bilirubin,Total 0.6 mg/dL (0.00-1.00); Blood Urea Nitrogen 18 mg/dL (7-18); Calcium 9.4 mg/dL (8.5-10.1); Carbon Dioxide 32 mmol/L (21-32); Chloride 102 mmol/L (98-108); Estimated Glomerular Filt Rate > 60; Glucose 261 mg/dL (70-99); Lipase 35 U/L (73-393); Osmolality Calculated 294 mOsm/kg (285-295); Potassium 3.8 mmol/L (3.5-5.1); Sodium 137 mmol/L (136-145); Total Protein 6.5 g/dL (6.4-8.2)
[2022-03-14 17:32] LABS: RBC Urine None seen /hpf (0-2); Squamous Epithelial Cell Urine Few /hpf (Few); WBC Urine None seen /hpf (0-3)
[2022-03-14 17:33] LABS: Bacteria Urine Trace /hpf; Mucus Urine Moderate /lpf
== END 2022-03-14 16:40 | disposition home or self-care (01) ==
LOC: CHSLAB 16:42
PROVIDERS: PCP Family Medicine; Visit Provider Family Medicine
DX: R10.84 Generalized abdominal pain (principal); R20.2 Paresthesia of skin; M54.9 Dorsalgia, unspecified
CPT/HCPCS: 36415; 72100; 73630; 80053; 81001; 82150; 83690; 85025

== ENCOUNTER 2022-05-10 14:07 | Outpatient (CLI) | payer OTHER, SELFPAY ==
[2022-05-10 15:23] LABS: Creatinine Urine 234.2 mg/dL
[2022-05-10 15:25] LABS: Thyroid Stimulating Hormone 0.648 uIU/mL (0.465-4.680)
[2022-05-10 15:28] LABS: Microalbumin Urine Random 49.1 mg/L (0-16.7)
[2022-05-10 15:38] LABS: Free T4 Free Thyroxine 1.61 ng/mL (0.78-2.19)
== END 2022-05-10 14:08 | disposition home or self-care (01) ==
PROVIDERS: PCP Family Medicine; Visit Provider Internal Medicine Endocrinology, Diabetes & Metabolism
DX: E10.65 Type 1 diabetes mellitus with hyperglycemia (principal); E03.9 Hypothyroidism, unspecified
CPT/HCPCS: 36415; 82043; 84439; 84443

== ENCOUNTER 2022-05-14 14:53 | Outpatient (CLI) | payer OTHER, SELFPAY ==
[2022-05-14 16:00] LABS: SARS-CoV-2 RNA PCR Negative (Negative)
== END 2022-05-14 14:54 | disposition home or self-care (01) ==
LOC: CHSLAB 14:56
PROVIDERS: PCP Family Medicine; Visit Provider Family Medicine
DX: R05.1 Acute cough (principal); Z20.822 Contact with and (suspected) exposure to COVID-19
CPT/HCPCS: C9803; U0003; U0005

== ENCOUNTER 2022-09-10 14:08 | Outpatient (CLI) | payer OTHER, SELFPAY ==
[2022-09-10 17:06] LABS: Microalbumin Urine Random 14.9 mg/L (0-16.7)
[2022-09-10 17:17] LABS: Free T4 Free Thyroxine 1.42 ng/mL (0.78-2.19); Vitamin D 25 Hydroxy 16.3 ng/mL
[2022-09-10 18:07] LABS: Alanine Aminotransferase 33 U/L (6-50); Albumin Level 4.2 g/dL (3.5-5.1); Alkaline Phosphatase 99 U/L (38-126); Anion Gap 6 mmol/L (8-16); Aspartate Amino Transferase 59 U/L (17-59); Bilirubin,Total 0.4 mg/dL (0.2-1.3); Blood Urea Nitrogen 22 mg/dL (9-20); Calcium 9.1 mg/dL (8.4-10.2); Carbon Dioxide 30 mmol/L (22-30); Chloride 103 mmol/L (98-107); Cholesterol 144 mg/dL (0-200); Estimated Glomerular Filt Rate > 60; Glucose 169 mg/dL (65-110); HDL Direct 56 mg/dL; Potassium 4.2 mmol/L (3.4-5.0); Sodium 139 mmol/L (137-145); Triglycerides 54 mg/dL (<150)
[2022-09-10 18:18] LABS: LDL Cholesterol Direct 60 mg/dL
[2022-09-10 18:39] LABS: Thyroid Stimulating Hormone 0.968 uIU/mL (0.465-4.680)
== END 2022-09-10 14:09 | disposition home or self-care (01) ==
LOC: ANHWCLAB 14:10
PROVIDERS: PCP Family Medicine; Visit Provider Nurse Practitioner Family
DX: E10.9 Type 1 diabetes mellitus without complications (principal); E03.9 Hypothyroidism, unspecified; E27.40 Unspecified adrenocortical insufficiency
CPT/HCPCS: 36415; 80053; 80061; 82043; 82306; 82607; 84439; 84443